=== PATIENT | female | born 1975 | race Caucasian/White ===

== ENCOUNTER 2017-06-23 23:01 | Inpatient (IN) | payer OTHER ==
[~2017-06-23] VITALS: Ht 165.1 cm; Wt 59.0 kg
[~2017-06-23 23:01] MED LIST: FERRALET 901 TAB PO; IBUPROFEN800 MG PO; LEVOTHYROXINE PO; LEVOTHYROXINE0.1 MG PO; MASON NATURAL325 MG PO; MS CONTIN15 MG PO; MULTIVITAMIN1 TAB PO; PERCOCET 325 MG1 TA2 PO; PERCOCET 5-3251 EACH PO; SYNTHROID0.125 MG PO; TRAMADOL HCL50 M1 PO
--- NOTE | 2017-06-23 23:18 | ED DYSPNEA/ASTHMA COMPLAINT ---
History of Present Illness General Chief Complaint: Dyspnea (COPD, CHF, Other) Stated Complaint: SOB Source: patient, family Exam Limitations: no limitations Vital Signs & Intake/Output Vital Signs & Intake/Output Vital Signs Date Time Temp Pulse Resp B/P B/P Pulse O2 O2 Flow FiO2 Mean Ox Delivery Rate 06/24 0251 98.1 77 18 115/62 94 Nasal 2.0L Cannula 06/24 0150 91 06/24 0100 100.3 91 22 99/54 97 Nasal 2.0L Cannula 06/23 2319 91 Room Air 06/23 2307 98.8 103 30 123/66 91 Room Air ED Intake and Output 06/24 0000 06/23 1200 Intake Total Output Total Balance Patient 130 lb Weight Allergies Coded Allergies: No Known Allergies (11/03/15) Reconcile Medications Levothyroxine Sodium 100 MCG TABLET 0.1 MG PO DAILY AC THYROID (Reported) Oxycodone HCl/Acetaminophen (Percocet 5-325 MG Tablet) 1 EACH TABLET 1 TAB PO DAILY PRN PAIN Triage Note: 42F C/O SOB, SHALLOW ANXIOUS BREATHING. LUNG SOUNDS DIMINISHED TO LLL, O2 SAT 91% AND USED RESCUE INH AND BREATHING TX WIRE SPINNER. C/O MIDSTERNAL/LEFT SIDED STABBING CP. WENT TO WALK IN THAT CONFIRMED PNEUMONIA, REPORTS SUBJECTIVE FEVERS AT HOME, AFEBRILE IN TRIAGE. ANXIOUS. ON PREDNISONE. Triage Nurses Notes Reviewed? yes Onset: Gradual Duration: day(s):, waxing and waning Timing: recent history Severity: moderate Activities at Onset: none Prior Episodes/Possible Cause: no prior episodes Modifying Factors: Improves With: rest. Associated Symptoms: cough, wheezing : No Patient currently breastfeeds: No HPI: 42 yo woman h/o smoking, seen at urgent care today and diagnosed with pneuomnia, given steroids and biaxin. She presents with dyspnea, chest wall pain, back pain that got worse throughout the rest of the day. She notes a productive cough, dyspnea, increased anxiety. She is otherwise well. Past History Travel History Traveled to [place] past 21 day No Medical History Any Pertinent Medical History? see below for history Neurological: NONE EENT: NONE Cardiovascular: NONE Respiratory: NONE Gastrointestinal: NONE Hepatic: NONE Renal: NONE Musculoskeletal: NONE Psychiatric: NONE Endocrine: THYROIDECTOMY Blood Disorders: anemia Cancer(s): NONE FABRICATION WELDER/Reproductive: fibroid Surgical History Surgical History: N Psychosocial History Who do you live with Paid Attentent What is your primary language Slovak Tobacco Use: Quit >30 days ago ETOH Use: denies use Illicit Drug Use: denies illicit drug use Family History Hx Contributory? No Review of Systems Review of Systems Constitutional: Reports: no symptoms. EENTM: Reports: no symptoms. Respiratory: Reports: no symptoms. Cardiovascular: Reports: no symptoms. GI: Reports: no symptoms. Genitourinary: Reports: no symptoms. Musculoskeletal: Reports: no symptoms. Skin: Reports: no symptoms. Neurological/Psychological: Reports: no symptoms. Hematologic/Endocrine: Reports: no symptoms. Immunologic/Allergic: Reports: no symptoms. All Other Systems: Reviewed and Negative Physical Exam Physical Exam General Appearance: well developed/nourished, mild distress Head: atraumatic, normal appearance Eyes: Bilateral: normal appearance. Ears, Nose, Throat: normal pharynx, normal ENT inspection Neck: normal inspection, supple, full range of motion Respiratory: bilateral wheeze, diminished breath sounds, parasternal chest wall tenderness. Cardiovascular: regular rate/rhythm Gastrointestinal: normal bowel sounds, soft, non-tender, no organomegaly Extremities: normal inspection, normal capillary refill, normal range of motion, no edema Neurologic/Psych: no motor/sensory deficits, awake, alert, oriented x 3, anxiety Skin: intact, normal color, warm/dry Core Measures ACS in differential dx? No CVA/TIA Diagnosis No Sepsis Present: No Sepsis Focused Exam Completed? No Progress Differential Diagnosis: asthma, bronchitis, pneumonia Plan of Care: Orders Procedure Date/time Status Nothing by Mouth 06/24 B Active Saline Lock 06/24 312 Active Misc Message 06/24 312 Active ED Holding Orders 06/24 312 Active Admit to inpatient 06/24 312 Active Vital Signs 06/24 312 Active Code Status 06/24 312 Active TROPONIN LEVEL 06/24 0215 Complete EKG 06/24 0215 Active RAPID VIRAL INFLUENZA A 06/24 0105 Complete Add-on Test (ER Only) 06/237 Active THYROID STIMULATING HORMONE 06/23 231 Complete TROPONIN LEVEL 06/23 2314 Complete HUMAN BETA HCG SCREEN 06/23 2314 Complete D-DIMER 06/23 2314 Complete COMPREHENSIVE METABOLIC PANEL 06/23 2314 Complete CBC WITHOUT DIFFERENTIAL 06/23 2313 Complete EKG 06/23 2309 Active Laboratory Tests 06/24/17 0209: Troponin I < 0.01 06/23/17 2315: Anion Gap 19 H, Estimated GFR > 60, BUN/Creatinine Ratio 16.0, Glucose 121 H, Calcium 9.3, Total Bilirubin 1.0, AST 18, ALT 19, Alkaline Phosphatase 65, Troponin I < 0.01, Total Protein 7.2, Albumin 4.7, Globulin 2.5, Albumin/ Globulin Ratio 1.9, TSH 0.297, Total Beta HCG NEGATIVE, D-Dimer High Sensitivty 276 H, CBC w Diff MAN DIFF ORDERED, RBC 3.80 L, MCV 98.8, MCH 33.0 H, MCHC 33.3, RDW 13.4, MPV 9.4, Gran % 95.8 H, Lymphocytes % 2.5 L, Monocytes % 1.2 L, Eosinophils % 0, Basophils % 0.5, Absolute Granulocytes 16.2 H, Segmented Neutrophils 95 H, Band Neutrophils 1, Absolute Lymphocytes 0.4 L, Lymphocytes 2 L, Monocytes 2, Absolute Monocytes 0.2, Absolute Eosinophils 0, Absolute Basophils 0.1, Platelet Estimate VERIFIED BY SMEAR, Normocytic RBCs VERIFIED, Normochromic RBCs VERIFIED, Fld Total RBCs Counted 100 Microbiology 06/24 107 NASOPHARYN: Influenza Virus A & B Rapid Smear - COMP Diagnostic Imaging: Viewed by Me: Radiology Read. Discussed w/RAD: Radiology Read. Radiology Impression: PATIENT: ELIZABETH MONROE PRESENT AGE: 42 PATIENT ACCOUNT NO: [id number] : 74 LOCATION: [facility] ORDERING PHYSICIAN: Eduardo Batista MD SERVICE DATE: 06/24/17 EXAM TYPE: CAT - CTA CHEST-PULMONARY EMBOLISM EXAMINATION: CT ANGIOGRAM OF THE CHEST WITH AND WITHOUT CONTRAST (CT PULMONARY ANGIOGRAM FOR PE) CLINICAL INFORMATION: dyspnea, +dimer COMPARISON: Chest x-ray June 23, 2017 TECHNIQUE: Prior to contrast administration, noncontrast localization images were obtained. Subsequently, multidetector volumetric imaging was performed from the thoracic inlet to below the diaphragms following the administration of 95 mL Optiray 350 intravenous contrast. No contrast reaction reported. Sagittal, coronal, and MIP oblique sagittal reformatted images were obtained on the CT workstation, uploaded to PACS, and reviewed. Total exam dose-length product 183.37 mGy-cm. FINDINGS: QUALITY OF STUDY/CONTRAST BOLUS: Satisfactory PULMONARY ARTERIES: No central or segmental pulmonary emboli. THORACIC AORTA: No aneurysm or dissection. LUNG: Scattered small focal groundglass opacities, infiltrate, in the anterior medial left upper lobe and right upper lobe. No bronchiectasis or reticular opacities. Small focus of consolidation atelectasis at the medial right middle lobe. Central bronchial airways are open. PLEURA: No pleural effusion or pneumothorax. MEDIASTINUM: Normal heart size. No pericardial effusion. No hilar or mediastinal lymphadenopathy. No evidence of septal bowing or right heart strain. CHEST WALL/AXILLA: No axillary or internal mammary lymphadenopathy. OSSEOUS STRUCTURES: No acute or suspicious osseous abnormality. UPPER ABDOMEN: 2 cm hypodensity likely hepatic cyst in left lobe of liver. Adrenal glands normal. No reflux of contrast into the hepatic veins to suggest elevated right heart pressures. IMPRESSION: 1. No evidence of pulmonary embolism. 2. Small scattered focus of groundglass infiltrates in the medial central anterior right upper lobe and left upper lobe. Small focus of consolidation/atelectasis at the medial right middle lobe. Would favor an infectious or inflammatory etiology. VTE: negative DICTATED BY: Miah Whalen MD DATE/TIME DICTATED:06/24/17208 LPN INSTRUCTOR:OVI DATE/TIME TRANSCRIBED:06/24/17208 CONFIDENTIAL, DO NOT COPY WITHOUT APPROPRIATE AUTHORIZATION. <Electronically signed in Other Vendor System> SIGNED BY: Miah Whalen MD 06/24/17217 CXR Impression: no acute abnormality, no infiltrates, normal size heart, normal mediastinum, PATIENT: ELIZABETH MONROE PRESENT AGE: 42 PATIENT ACCOUNT NO: [id number] : 73 LOCATION: [facility] ORDERING PHYSICIAN: Inocencio Zapata DO (TBS) SERVICE DATE: 06/23/17 EXAM TYPE: RAD - XRY- CHEST XRAY, TWO VIEWS EXAMINATION: XR CHEST CLINICAL INFORMATION: Cough and shortness of breath COMPARISON: None TECHNIQUE: 2 views of the chest were obtained. FINDINGS: No significant abnormality is noted involving the heart, lungs, mediastinum, bony thorax or soft tissues. IMPRESSION: Unremarkable examination. DICTATED BY: Miah Whalen MD DATE/TIME DICTATED:06/23/172334 LPN INSTRUCTOR:RENAE DATE/TIME TRANSCRIBED:02/04/18 / 2335 CONFIDENTIAL, DO NOT COPY WITHOUT APPROPRIATE AUTHORIZATION. <Electronically signed in Other Vendor System> SIGNED BY: Miah Whalen MD 06/23/17 2365 Initial ED EKG: non specific st changes... nsr. Repeat EKG: unchanged Departure Departure Disposition: STILL A PATIENT Condition: Stable Clinical Impression Primary Impression: Bronchitis Secondary Impressions: Chest wall pain, Hypoxia, Sepsis Referrals: Mikaela Garza APRN (PCP/Family) Departure Forms: Customer Survey General Discharge Information Comments 06/24/17, 1:00am... pt feeling more comfortable. 02sat 92% on room air. Lungs with diminished breath sounds. +dimer... discussed with patient.... will check ct angio 06/24/17, 3:07am... pt desatting to 89-91% on room air... Admission Note Spoke With: Vishnu Nevarez MD Documentation of Exam: Documentation of any treatments & extenuating circumstances including Concerns Regarding Discharge (functional status, medication knowledge or non-compliance, living conditions, etc.) that warrant an admission rather than observation: pt with hypoxia, wheezing, requiring supplemental 02. Pt has also failed outpatient abx. pt to be admitted for 02 support, iv steroids, iv abx. Critical Care Note Critical Care Note Critical Care Time: 30-74 min
[2017-06-23 23:27] LABS: ABSOLUTE BASOPHIL COUNT 0.1 /CUMM (0.0-0.2); ABSOLUTE EOSINOPHIL COUNT 0 /CUMM (0.0-0.7); ABSOLUTE GRANULOCYTE CT 16.2 /CUMM (1.4-6.5); ABSOLUTE LYMPH COUNT 0.4 /CUMM (1.2-3.4); ABSOLUTE MONOCYTE COUNT 0.2 /CUMM (0.10-0.60); BASOPHIL % 0.5 % (0.0-2.0); EOSINOPHIL % 0 % (0-5); HEMATOCRIT 37.5 % (37-47); MEAN CORPUSCULAR HGB CONC 33.3 G/DL (33.0-37.0); MEAN CORPUSCULAR VOLUME 98.8 FL (81.0-99.0); MEAN PLATELET VOLUME 9.4 FL (7.4-10.4); PLATELET COUNT 169 /CUMM (130-400); RBC DISTRIBUTION WIDTH 13.4 % (11.5-14.5); WHITE BLOOD CELL COUNT 16.9 /CUMM (4.8-10.8)
[2017-06-23 23:30] LABS: GRANULOCYTE % 95.8 % (42.2-75.2)
--- NOTE | 2017-06-23 23:38 | RADIOLOGY REPORT ---
EXAMINATION: XR CHEST CLINICAL INFORMATION: Cough and shortness of breath COMPARISON: None TECHNIQUE: 2 views of the chest were obtained. FINDINGS: No significant abnormality is noted involving the heart, lungs, mediastinum, bony thorax or soft tissues. IMPRESSION: Unremarkable examination.
--- NOTE | 2017-06-24 02:18 | CT SCAN REPORT ---
EXAMINATION: CT ANGIOGRAM OF THE CHEST WITH AND WITHOUT CONTRAST (CT PULMONARY ANGIOGRAM FOR PE) CLINICAL INFORMATION: dyspnea, +dimer COMPARISON: Chest x-ray June 23, 2017 TECHNIQUE: Prior to contrast administration, noncontrast localization images were obtained. Subsequently, multidetector volumetric imaging was performed from the thoracic inlet to below the diaphragms following the administration of 95 mL Optiray 350 intravenous contrast. No contrast reaction reported. Sagittal, coronal, and MIP oblique sagittal reformatted images were obtained on the CT workstation, uploaded to PACS, and reviewed. Total exam dose-length product 183.37 mGy-cm. FINDINGS: QUALITY OF STUDY/CONTRAST BOLUS: Satisfactory PULMONARY ARTERIES: No central or segmental pulmonary emboli. THORACIC AORTA: No aneurysm or dissection. LUNG: Scattered small focal groundglass opacities, infiltrate, in the anterior medial left upper lobe and right upper lobe. No bronchiectasis or reticular opacities. Small focus of consolidation atelectasis at the medial right middle lobe. Central bronchial airways are open. PLEURA: No pleural effusion or pneumothorax. MEDIASTINUM: Normal heart size. No pericardial effusion. No hilar or mediastinal lymphadenopathy. No evidence of septal bowing or right heart strain. CHEST WALL/AXILLA: No axillary or internal mammary lymphadenopathy. OSSEOUS STRUCTURES: No acute or suspicious osseous abnormality. UPPER ABDOMEN: 2 cm hypodensity likely hepatic cyst in left lobe of liver. Adrenal glands normal. No reflux of contrast into the hepatic veins to suggest elevated right heart pressures. IMPRESSION: 1. No evidence of pulmonary embolism. 2. Small scattered focus of groundglass infiltrates in the medial central anterior right upper lobe and left upper lobe. Small focus of consolidation/atelectasis at the medial right middle lobe. Would favor an infectious or inflammatory etiology. VTE: negative
--- NOTE | 2017-06-24 03:20 | History & Physical ---
Issa BUSTILLOS,[facility] 06/24/17 0319: General Information and HPI MD Statement: I have seen and personally examined ELIZABETH NIXON and documented this H&P. The patient is a 42 year old F who presented with a patient stated chief complaint of [sob]. History of Present Illness: 42 yo F hx of hypothyroid s/p thyroidectomy, hypothyrodism presenting for pna found in urgent care. The pt states sx started 2 days ago and is progressively getting worse. Patient states that she went to her friend's house to have a breathing treatment which did not help so she decided to come to the ED. She endorses cough with green productive sputum which is worst at night. She also complains of fevers, chills, coughing and sneezing. States she has diiffuse burning chest pain which radiates to arm/neck intermittently. She also reports burning abd pain which radiates to her back. Currently pain is 6/10. Denies any sick contacts. No flu or pna vaccine. Of note pt had L breast nodule biopsied but and states results were negative. 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 Cardiovascular: Reports: see HPI, chest pain. Respiratory: Reports: cough, short of breath, sputum production. GI: Reports: see HPI, abdominal pain. Skin: Reports: see HPI (2+ radial). Exam & Diagnostic Data Last 24 Hrs of Vital Signs/I&O Vital Signs Date Time Temp Pulse Resp B/P B/P Pulse O2 O2 Flow FiO2 Mean Ox Delivery Rate 06/24 0251 98.1 77 18 115/62 94 Nasal 2.0L Cannula 02/05 0150 91 06/24 0100 100.3 91 22 99/54 97 Nasal 2.0L Cannula 06/23 2319 91 Room Air 06/23 2307 98.8 103 30 123/66 91 Room Air Intake & Output 06/24 0800 06/24 0000 06/23 1600 Intake Total Output Total Balance Patient 130 lb Weight Physical Exam General Appearance Alert, Oriented X3, Cooperative, Pt appears agitated at times Skin blanching erythema of chest Cardiovascular reproducible cp Lungs diffuse decreased air movement Abdomen reproducible abd pain Extremities 2+ radial pulses, no LE edema Last 24 Hrs of Labs/Chris: Laboratory Tests 06/24/17 0323: Lactic Acid Cancelled 06/24/17 0209: Troponin I < 0.01 06/23/17 2315: Anion Gap 19 H, Estimated GFR > 60, BUN/Creatinine Ratio 16.0, Glucose 121 H, Lactic Acid 4.6 H, Calcium 9.3, Total Bilirubin 1.0, AST 18, ALT 19, Alkaline Phosphatase 65, Troponin I < 0.01, Total Protein 7.2, Albumin 4.7, Globulin 2.5, Albumin/Globulin Ratio 1.9, TSH 0.297, Total Beta HCG NEGATIVE, D-Dimer High Sensitivty 276 H, CBC w Diff MAN DIFF ORDERED, RBC 3.80 L, MCV 98.8, MCH 33.0 H, MCHC 33.3, RDW 13.4, MPV 9.4, Gran % 95.8 H, Lymphocytes % 2.5 L, Monocytes % 1.2 L, Eosinophils % 0, Basophils % 0.5, Absolute Granulocytes 16.2 H, Segmented Neutrophils 95 H, Band Neutrophils 1, Absolute Lymphocytes 0.4 L, Lymphocytes 2 L, Monocytes 2, Absolute Monocytes 0.2, Absolute Eosinophils 0, Absolute Basophils 0.1, Platelet Estimate VERIFIED BY SMEAR, Normocytic RBCs VERIFIED, Normochromic RBCs VERIFIED, Fld Total RBCs Counted 100 Microbiology 06/24 409 BLOOD: Blood Culture - RECD 06/24 354 BLOOD: Blood Culture - RECD 06/24 319 BLOOD: Blood Culture - ORD 06/24 107 NASOPHARYN: Influenza Virus A & B Rapid Smear - COMP Assessment/Plan Assessment: A: 42 yo F hx of hypothyroid s/p thyroidectomy, hypothyrodism presenting for pna found in urgent care #severe sepsis 2/2 to multifocal pna T max 100.3 lactic acid 4.6 WBC 16.9 D-dimer 276 Chest CTA: 1. There are calcified and noncalcified pleural plaques however No CT evidence of aneurysm or dissection of the thoracic aorta. 2. Coronary calcifications. 3. Gallstones. Cholelithiasis. 4. There are 2 hypodense areas in the RIGHT kidney 1.2 cm, could be complex cyst versus lesion -cont solumdrol 40 q12 -trc/nebs/mucinex -urinary legionella, strep pneumo, sputum and blood cx -cont ceftriaxone/azithro -consult pulm in AM -trend lactic acid #ekg changes in the setting of diffuse abd/chest pain T wave depressions in lateral leads trop <.01 x2 -f/u trop ekg 2 more times -cardiology consult -f/u lipase levels for abd pain -start PPI for ?gastritis as pt has diffsue abd pain #chest erythema Blanching erythema suggests excess estrogen LFTs are normal -cont to monitor #Utox -f/u utox #FULL CODE #DVT prophylaxis -ENOXAPARIN As Ranked By This Provider Problem List: 1. Pneumonia Core Measures/Misc (02/03) Acute Coronary Syndrome ACS Diagnosis: No Congestive Heart Failure Congestive Heart Failure Diagnosis No Cerebrovascular Accident CVA/TIA Diagnosis: No VTE (View Protocol) VTE Risk Factors Acute Medical Illness No Mechanical VTE Prophylaxis d/t Other No VTE Pharm Prophylaxis d/t NA PharmProphylax ordered Sepsis (View protocol) Sepsis Present: Yes Ana BUSTILLOS,[facility] 06/24/17 0453: Resident Review Statement Resident Statement: examined this patient, discussed with editing internship, agreed with editing internship, discussed with family Other Findings: Ms. 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 Patient stated that 3 days ago she started symptoms of upper respiratory infection, sneezing, subjective fever, chills. On Saturday started to have difficulty breathing, slept on sitting position for symptomatic relieve. She woke up this morning and went to friend's house for nebulizer treatment, no change in the symptoms, went to urgent clinic and was prescribed steroids and clarthimycin however symptoms persisted and came to ED for evaluation. Patient reported that shortness of breath has been getting worse, reported chest and abdominal pain, constant sharp in nature, denied palpitation. Patient never had similar symptoms before, no history of lung or heart disease. No history of sick contact. Didn't have flu or pneumonia vaccine this season. Patient denied nausea, vomiting, diarrhea or constipation, burning with urination, lower extremity swelling. Has family history of cancer including breast cancer in mother, heart disease. On admission Vitals 98.8 temperature, MAXIMUM TEMPERATURE 100.3, pulse 103, blood pressure 123/66, saturating 91% on room air and 97% on 2 L Physical exam C1-C2 regular no murmur, respiratroy bilateral diffuse expiratory wheeze, chest reproducible pain, abdomen soft, positive bowel sounds, mild tenderness on palpation. No lower extremity edema. Labs significant for leukocytosis 16.9 with left chest, 1 band, H&H 12.5/37.5, platelet 169, sodium 141, potassium 4.2, chloride 103, bicarbonate 19, BUN/ creatinine 8/0.5, anion gap 19, lactic acid 4.6, d-dimer 276, troponin less then 0.012 Imaging Chest x-ray negative for acute changes CTA IMPRESSION: 1. No evidence of pulmonary embolism. 2. Small scattered focus of groundglass infiltrates in the medial central anterior right upper lobe and left upper lobe. Small focus of consolidation/atelectasis at the medial right middle lobe. Would favor an infectious or inflammatory etiology. VTE: negative Problem list #Sepsis #Acute hypoxic respiratory failure #Pneumonia community acquired versus atypical #Lactic acidosis #Atypical chest pain #EKG changes T-wave inversion, peaked P wave in lead II #Hypothyroidism Plan -Admit to telemetry floor given EKG changes -Vitals every shift -TRC and nebs -Oxygen supplementation -Ceftriaxone and azithromycin -Solu-Medrol 40 every 12 hours -Mucinex by mouth -Obtained Legionella and streptococcus urine antigen -Blood culture and sputum culture -Pulmonary consultation in a.m. -Cardiology consultation in a.m. -Additional drops and EKG 2 -Repeat lactic acid 2 -IV fluid normal saline boluses -Obtain urine tox -Given a typical abdominal pain with radiation to pack, will obtain lipase -Start PPI -Obtained coagulation profile -Continue home dose Synthroid Diet regular Code full DVT prophylaxis Lovenox Geri,[facility] 06/24/17 0533: Attending MD Review Statement Attending Statement Attending MD Statement: examined this patient, discuss w/resident/PA/WIRE PULLER, agreed w/resident/PA/WIRE PULLER, reviewed EMR data (avail), reviewed images, amended to note Attending Assessment/Plan: CC: Shortness of breath PMH: Lyndon's thyroiditis S/P thyroidectomy currently on levothyroxine Patient came to ER for worsening shortness of breath, wheezing. She started to notice URI symptoms last 4-5 days, followed by cough with initially clear sputum production which changed to yellowish green. She felt fever and chills at home. She also mentions chest pain, substernal, stabbing, nonradiating, not worsened by breathing. She also has vague abdominal pain. Initially for her URI symptoms and persistent cough she went to urgent care clinic where she was prescribed steroids and antibiotics, she tried a dose at home which did not help. Her breathing was progressively worsening so she came to ER. Patient is a poor historian, does not provide a lot of details about past medical history. Complete ROS unremarkable. Patient had increased nodule biopsy which was benign. She quit smoking 9 months back, absolutely denies alcohol and drugs. Vitals: T max 100.3, pulse 103, RR 30, blood pressure 123/66, saturating 91% on room air improved to 94% on 2 L On exam: A O 3, cooperative, moderate respiratory distress, accessory muscles of respiration in use, thin built, Neck supple, JVD normal, no lymphadenopathy, mucosa moist, no focal neurological deficit, no dependent edema, CVS: S1-S2, RRR. RS: Bilateral wheezing and rhonchi. Abdomen: Soft, NT, ND, bowel sounds present. obvious skin rashes or inflammation but she has Spider angioma Labs: WBC 16.9, hemoglobin 12.5, hematocrit 37.5, platelet 169, neutrophils 95%, band 1, sodium 141, potassium 4.2, chloride 103, bicarbonate 19, BUN 8, creatinine 0.5, anion gap 19, glucose 121, calcium 9.3, lactate 4.6, LFT unremarkable, troponin less than 0.01, TSH 0.29, influenza negative ECG: ? T-wave inversion V2 V3 and V4 CXR:Unremarkable examination. CTA chest: 1. No evidence of pulmonary embolism. 2. Small scattered focus of groundglass infiltrates in the medial central anterior right upper lobe and left upper lobe. Small focus of consolidation/atelectasis at the medial right middle lobe. Would favor an infectious or inflammatory etiology. Assessment and plan 42-year-old female with past medical history significant for iatrogenic hypothyroidism after thyroidectomy for Lyndon's thyroiditis, ex smoker presented in ER for acute worsening of shortness of breath. Her symptoms started with URI, followed by cough with clear expectoration with change to yellow- green. Patient had fever at home and complains of chest pain. She had fever of 100.3 in ER, tachycardic, tachypneic, thin built and was found to have respiratory distress with wheezing and rhonchi on auscultation. Even though chest x-ray did not machine pecan picker pneumonia, CTA chest shows evidence of multifocal pneumonia. She had leukocytosis with 1 band, lactic acidosis. She also has T- wave inversions in lateral leads, comparison not available. Given her extensive smoking history and current chest pain, it would be appropriate to monitor her on telemetry floor. Patient is poor historian and does not provide many details in her history, denies alcohol intake but has spider angioma on her chest. + Multifocal pneumonia + Severe sepsis secondary to pneumonia + Chest pain with T-wave inversion (no previous ECG to compare) + History of hypothyroidism - Admit to telemetry - Continuous telemetry monitoring - Try to wean off oxygen - IV methylprednisolone 40 mg every 12 hours - IV azithromycin and ceftriaxone - TRC nebulization with albuterol and ipratropium scheduled and when necessary - Mucinex scheduled twice a day - Serial troponin and EKGs - Cardiology consult - Legionella and strep antigen - Check U tox - Trend lactate - Check lipase - Continue by mouth Protonix - Continue rest of the home medications - Adequate pain control - DVT prophylaxis
--- NOTE | 2017-06-24 05:35 | Admission Certification ---
Admission Certification Certification Statement - As attending physician, I certify that at the time of - admission, based on clinical presentation, severity of - symptoms, need for further diagnostic testing and - therapeutic interventions, and risk of adverse outcomes - without in-hospital treatment, in my clinical assessment, - this patient requires an acute hospital stay for a minimum - of two nights or longer. I have also considered psychsocial - factors such as support system, advanced age, financial - issues, cognitive issues, and failed out-patient treatments, - past re-admission history, safety of patient, and lack of - compliance as applicable. Specific rationale supporting this admission is: Multifocal pneumonia
[2017-06-24 06:57] LABS: PT 12.1 SEC (9.4-12.5); PTT 31 SEC (25-37)
--- NOTE | 2017-06-24 10:05 | Event Note ---
Event Note Event Note: 42 yo F with pmh of Lyndon's thyroiditis status post thyroidectomy on levothyroxin, presented to the emergency after 3 days of cough with greenish sputum, wheezing and shortness of breath. She also complained of substernal chest pain, which seemed to be pleuritic, and took the first dose of oral antibiotic prescribed by urgent care clinic, but was getting worsening of symptoms, and presented to the emergency department. On presentation, her temperature was 100.3, pulse 103, respiration 30, BP 123/66 , SPO2 91% on room air, improved to 94% on 2 L oxygen via nasal cannula. See presented with moderate respiratory distress with bilateral wheezing and rhonchi on chest auscultation, and was admitted to the telemetry floor for continuous pulse ox monitoring, and management of following issues: #Acute respiratory failure, secondary to come the acquired pneumonia: We are treating her with IV ceftriaxone and IV azithromycin, IV steroids 40 mg every 12 hours, TRC/nebs, Mucinex. #Active EKG changes, T-wave inversion, in the setting of pneumonia. Patient's EKG shows T-wave inversion, and later normalization, and with a history of recurrent chest pains, cardiac consultation has been requested to inquire if she requires further investigation as inpatient as compared to outpatient setting. Will wait for recommendations. #Continue rest of her home medications. #Diet: Regular diet #DVT ppx: SC Lovenox #Code status: Full code
--- NOTE | 2017-06-24 14:41 | PN- Att Addend ---
Attending Addendum Attending Brief Note Patient seen and examined. Lying in bed not in acute distress. Family present at the bedside. Reports shortness of breath with exertion. Reports productive cough. Denies chest pain at present. Patient however admits to chest pain with rest or exertion at baseline even preceding her current symptoms. EKG on arrival emergency room showed T-wave inversions that have resolved on EKG this morning. She is hemodynamically stable. Troponins are negative 3. Vital Signs Date Time Temp Pulse Resp B/P B/P Pulse O2 O2 Flow FiO2 Mean Ox Delivery Rate 06/24 1417 98.2 56 18 111/66 96 Nasal 2.5L Cannula 06/24 1129 98.3 60 18 116/59 95 Nasal 2.0L Cannula 06/24 1034 97.9 66 18 120/77 97 Nasal 2.0L Cannula 06/24 0750 98.9 68 20 114/57 97 Nasal 2.0L Cannula 06/24 0725 97.4 67 20 111/60 96 Nasal 2.0L Cannula 06/24 0444 97.2 67 20 115/70 96 Nasal 2.0L Cannula 06/24 0251 98.1 77 22 115/62 94 Nasal 2.0L Cannula 06/24 0150 91 06/24 0100 100.3 91 22 99/54 97 Nasal 2.0L Cannula 06/23 2319 91 Room Air 06/23 2307 98.8 103 30 123/66 91 Room Air General appearance: Not in acute distress Heart: S1-S2 regular with no audible murmur Lungs: Fair entry bilaterally with coarse breath sounds. Abdomen: Soft, nontender with normal bowel sounds Extremities: No pedal edema Skin: Intact without rashes Laboratory Tests 06/24/17 0836: Troponin I < 0.01 06/24/17 0323: Lactic Acid Cancelled 06/24/17 0209: Troponin I < 0.01 06/24/17 0105: Virus Culture Pending 06/23/17 2315: Anion Gap 19 H, Estimated GFR > 60, BUN/Creatinine Ratio 16.0, Glucose 121 H, Lactic Acid 4.6 H, Calcium 9.3, Total Bilirubin 1.0, AST 18, ALT 19, Alkaline Phosphatase 65, Troponin I < 0.01, Total Protein 7.2, Albumin 4.7, Globulin 2.5, Albumin/Globulin Ratio 1.9, Lipase 21 L, TSH 0.297, Total Beta HCG NEGATIVE, PT 12.1, INR 1.15, APTT 31, D-Dimer High Sensitivty 276 H, CBC w Diff MAN DIFF ORDERED, RBC 3.80 L, MCV 98.8, MCH 33.0 H, MCHC 33.3, RDW 13.4, MPV 9.4, Gran % 95.8 H, Lymphocytes % 2.5 L, Monocytes % 1.2 L, Eosinophils % 0, Basophils % 0.5, Absolute Granulocytes 16.2 H, Segmented Neutrophils 95 H, Band Neutrophils 1, Absolute Lymphocytes 0.4 L, Lymphocytes 2 L, Monocytes 2, Absolute Monocytes 0.2, Absolute Eosinophils 0, Absolute Basophils 0.1, Platelet Estimate VERIFIED BY SMEAR, Normocytic RBCs VERIFIED, Normochromic RBCs VERIFIED , Fld Total RBCs Counted 100, Serum Alcohol < 10.0 Microbiology 06/24 447 URINE ROUT: Legionella Antigen - COLB 06/24 447 URINE ROUT: Streptococcus pneumoniae Antigen (M - COLB 06/24 447 LOWER RESP: Respiratory Culture - COLB 06/24 447 LOWER RESP: Gram Stain - COLB 06/24 0410 BLOOD: Blood Culture - RECD 06/24 0355 BLOOD: Blood Culture - RECD 06/24 0320 BLOOD: Blood Culture - CAN Cancelled: DUPLICATE ORDER 1ST/VENOUS, SEE [id number] & [id number] 06/24 0108 NASOPHARYN: Influenza Virus A & B Rapid Smear - COMP Problems: 1. Community acquired pneumonia 2. History of chest pain with abnormal EKG on presentation. Plan: -Continue IV antibiotic therapy for pneumonia. Obtain sputum cultures if possible. -Would recommend follow-up imaging in the future to document resolution of her infection. -If she shows no clinical improvement over the next 48 hours we will consider obtaining pulmonary consultation. -Her abnormal EKG and complaint of chest pain there is concern for ischemic disease. She is currently asymptomatic and cardiac enzymes are negative. Recommend echocardiogram and cardiology consultation.
--- NOTE | 2017-06-24 15:51 | Cons- Cardiology ---
General Information and HPI Consulting Request Date of Consult: 06/24/17 Requested By: Jair Jordan MD Reason for Consult: Abnormal EKG in the setting of an acute respiratory illness Source of Information: patient Exam Limitations: no limitations History of Present Illness: The patient is a 42-year-old female who has been generally healthy. She has no history of heart disease or hypertension. She is not on any cardiac medications. She is a light smoker. She has been complaining of several days of increasing cough and shortness of breath and finally came to the emergency room last evening. Her initial electrocardiogram showed diffuse nonspecific T- wave changes including some mild T-wave inversions anteriorly. Subsequent EKG showed somewhat improved T-wave changes and this morning's electrocardiogram was normal. She has 3 sets of negative troponins. She is not having any cardiac complaints during this period. It was recommended to bring her in the hospital for her respiratory symptoms and probable pneumonia and to monitor her on telemetry. Allergies/Medications Allergies: Coded Allergies: No Known Allergies (11/03/15) Home Med List: Levothyroxine Sodium 100 MCG TABLET 0.1 MG PO DAILY AC THYROID (Reported) Oxycodone HCl/Acetaminophen (Percocet 5-325 MG Tablet) 1 EACH TABLET 1 TAB PO DAILY PRN PAIN Current Medications: Current Medications Sig/Tony Start time Last Medication Dose Route Stop Time Status Admin Acetaminophen 650 MG Q6P PRN 06/24 0430 AC PO Albuterol Sulfate 3 ML Q4H PRN 06/24 0500 AC INH Albuterol Sulfate 3 ML ONCE ONE 06/24 0115 DC 06/24 INH 06/24 0116 0150 Albuterol Sulfate 3 ML ONCE ONE 06/23 2315 DC 06/23 INH 06/23 2316 2321 Azithromycin 500 MG DAILY 06/24 1000 AC 06/24 Dextrose/Water 250 ML IV 1030 Azithromycin 500 MG ONCE ONE 06/24 0330 DC 06/24 Dextrose/Water 250 ML IV 06/24 0429 0441 Ceftriaxone Sodium 0 .STK-MED ONE 06/24 1018 DC .ROUTE Ceftriaxone Sodium 1,000 MG DAILY 06/24 1000 AC 06/24 IV 1020 Ceftriaxone Sodium 0 .STK-MED ONE 06/24 0431 DC .ROUTE Ceftriaxone Sodium 1,000 MG ONCE ONE 06/24 0330 DC 06/24 IV 06/24 033 0441 Enoxaparin Sodium 0 .STK-MED ONE 06/24 1018 DC SC Enoxaparin Sodium 40 MG DAILY 06/24 1000 AC 06/24 SC 1020 Guaifenesin 600 MG Q12 06/24 1000 AC 06/24 PO 1030 Ipratropium [place] 2.5 ML ONCE ONE 06/24 0115 DC 06/24 INH 06/24 0116 0150 Ipratropium [place] 2.5 ML ONCE ONE 06/23 2315 DC 06/23 INH 06/23 2316 2321 Levothyroxine Sodium 0.1 MG DAILY AC 06/24 0700 AC 06/24 PO 0749 Methylprednisolone 40 MG Q12 06/24 1000 AC 06/24 IV 1030 Methylprednisolone 0 .STK-MED ONE 06/24 0036 DC .ROUTE Methylprednisolone 60 MG ONCE ONE 06/23 2330 DC 06/24 IV 06/23 2331 0037 Omeprazole 0 .STK-MED ONE 06/24 0753 DC PO Omeprazole 20 MG DAILY AC 06/24 0700 AC 06/24 PO 0749 Sodium Chloride 1,000 ML Q10H 06/24 1330 AC 06/24 IV 06/25 0929 1519 Sodium Chloride 500 ML BOLUS ONE 06/24 1330 DC / IV 06/24 1429 1359 Sodium Chloride 1,000 ML BOLUS ONE 06/24 0430 DC / IV 06/24 0629 0700 Sodium Chloride 1,000 ML BOLUS ONE 06/24 0415 DC 06/24 IV / 0514 0418 Review of Systems Review of Systems: No other complaints in the review of systems Past History Travel History Traveled to [place] past 21 day No Medical History Neurological: migraine EENT: NONE Cardiovascular: NONE Respiratory: NONE Gastrointestinal: NONE Hepatic: NONE Renal: NONE Musculoskeletal: NONE Psychiatric: NONE Endocrine: THYROIDECTOMY Blood Disorders: anemia Cancer(s): NONE PHARMACY TECHNICIAN INSTRUCTOR/Reproductive: fibroid Surgical History Surgical History: none Psychosocial History ETOH Use: denies use Illicit Drug Use: denies illicit drug use Exam & Diagnostic Data Vital Signs and I&O Vital Signs Date Time Temp Pulse Resp B/P B/P Pulse O2 O2 Flow FiO2 Mean Ox Delivery Rate 06/24 1417 98.2 56 18 111/66 96 Nasal 2.5L Cannula 06/24 1129 98.3 60 18 116/59 95 Nasal 2.0L Cannula 06/24 1034 97.9 66 18 120/77 97 Nasal 2.0L Cannula 06/24 0750 98.9 68 20 114/57 97 Nasal 2.0L Cannula 06/24 0725 97.4 67 20 111/60 96 Nasal 2.0L Cannula 06/24 0444 97.2 67 20 115/70 96 Nasal 2.0L Cannula 06/24 0251 98.1 77 22 115/62 94 Nasal 2.0L Cannula 06/24 0150 91 06/24 0100 100.3 91 22 99/54 97 Nasal 2.0L Cannula 06/23 2319 91 Room Air 06/23 2307 98.8 103 30 123/66 91 Room Air Intake & Output 06/24 1600 06/24 0800 06/24 0000 06/23 1600 06/23 0800 06/23 0000 Intake Total 250 1250 Output Total Balance 250 1250 Intake, IV 250 1250 Patient 130 lb Weight Physical Exam: On physical she is a well-developed well-nourished middle-aged female in no acute distress. HEENT exam is normal Chest reveals a few rhonchi and mild expiratory wheezing Heart reveals regular rhythm and no murmurs Abdomen benign Extremities good pulses, no edema Labs/Chris Results: Laboratory Tests 06/24 06/24 06/24 06/24 06/24 1509 1509 0836 0323 0209 Chemistry Lactic Acid Pending Cancelled Troponin I (< 0.11 ng/ml) Pending < 0.01 < 0.01 06/24 06/23 0105 2315 Chemistry Sodium (137 - 145 mmol/L) 141 Potassium (3.5 - 5.1 mmol/L) 4.2 Chloride (98 - 107 mmol/L) 103 Carbon Dioxide (22 - 30 mmol/L) 19 L Anion Gap (5 - 16) 19 H BUN (7 - 17 mg/dL) 8 Creatinine (0.5 - 1.0 mg/dL) 0.5 Estimated GFR (>60 ml/min) > 60 BUN/Creatinine Ratio (7 - 25 %) 16.0 Glucose (65 - 99 mg/dL) 121 H Lactic Acid (0.7 - 2.1 mmol/L) 4.6 H Calcium (8.4 - 10.2 mg/dL) 9.3 Total Bilirubin (0.2 - 1.3 mg/dL) 1.0 AST (14 - 36 U/L) 18 ALT (9 - 52 U/L) 19 Alkaline Phosphatase (<127 U/L) 65 Troponin I (< 0.11 ng/ml) < 0.01 Total Protein (6.3 - 8.2 g/dL) 7.2 Albumin (3.5 - 5.0 g/dL) 4.7 Globulin (1.9 - 4.2 gm/dL) 2.5 Albumin/Globulin Ratio (1.1 - 2.2 %) 1.9 Lipase (23 - 300 U/L) 21 L TSH (0.270 - 4.200 uIU/mL) 0.297 Total Beta HCG (NEGATIVE) NEGATIVE Coagulation PT (9.4 - 12.5 SEC) 12.1 INR (0.90 - 1.19) 1.15 APTT (25 - 37 SEC) 31 D-Dimer High Sensitivty (0 - 243 ng/ml) 276 H Hematology CBC w Diff MAN DIFF ORDERED WBC (4.8 - 10.8 /CUMM) 16.9 H RBC (4.20 - 5.40 /CUMM) 3.80 L Hgb (12.0 - 16.0 G/DL) 12.5 Hct (37 - 47 %) 37.5 MCV (81.0 - 99.0 FL) 98.8 MCH (27.0 - 31.0 PG) 33.0 H MCHC (33.0 - 37.0 G/DL) 33.3 RDW (11.5 - 14.5 %) 13.4 Plt Count (130 - 400 /CUMM) 169 MPV (7.4 - 10.4 FL) 9.4 Gran % (42.2 - 75.2 %) 95.8 H Lymphocytes % (20.5 - 51.1 %) 2.5 L Monocytes % (1.7 - 9.3 %) 1.2 L Eosinophils % (0 - 5 %) 0 Basophils % (0.0 - 2.0 %) 0.5 Absolute Granulocytes (1.4 - 6.5 /CUMM) 16.2 H Segmented Neutrophils (42.2 - 75.2 %) 95 H Band Neutrophils (0.0 - 5.0 %) 1 Absolute Lymphocytes (1.2 - 3.4 /CUMM) 0.4 L Lymphocytes (20.5 - 51.1 %) 2 L Monocytes (1.7 - 9.3 %) 2 Absolute Monocytes (0.10 - 0.60 /CUMM) 0.2 Absolute Eosinophils (0.0 - 0.7 /CUMM) 0 Absolute Basophils (0.0 - 0.2 /CUMM) 0.1 Platelet Estimate (ADEQUATE) VERIFIED BY SMEAR Normocytic RBCs VERIFIED Normochromic RBCs VERIFIED Other Body Source Fld Total RBCs Counted (%) 100 Serology Virus Culture Pending Toxicology Serum Alcohol (<10 MG/DL) < 10.0 Diagnostic Data EKG Results EKG on June 23 at 23:23 hrs. shows sinus rhythm at a rate of [address]-T wave abnormalities. Repeat EKG hasn't 2:16 AM showed sinus rhythm at 71 with the nonspecific T-wave changes a little less prominent. Repeat EKG this morning at 8:18 AM is within normal limits CXR Results PATIENT: ELIZABETH MONROE PRESENT AGE: 42 PATIENT ACCOUNT NO: [id number] : 74 LOCATION: [facility] ORDERING PHYSICIAN: Inocencio Zapata DO (TBS) SERVICE DATE: 06/23/17 EXAM TYPE: RAD - XRY-CHEST XRAY, TWO VIEWS EXAMINATION: XR CHEST CLINICAL INFORMATION: Cough and shortness of breath COMPARISON: None TECHNIQUE: 2 views of the chest were obtained. FINDINGS: No significant abnormality is noted involving the heart, lungs, mediastinum, bony thorax or soft tissues. IMPRESSION: Unremarkable examination. DICTATED BY: Miah Whalen MD DATE/TIME DICTATED:06/23/172334 CLAIMS MANAGER:OVI DATE/TIME TRANSCRIBED:06/23/172334 CONFIDENTIAL, DO NOT COPY WITHOUT APPROPRIATE AUTHORIZATION. <Electronically signed in Other Vendor System> SIGNED BY: Miah Whalen MD 06/23/172337 Other Results IMPRESSION: 1. No evidence of pulmonary embolism. 2. Small scattered focus of groundglass infiltrates in the medial central anterior right upper lobe and left upper lobe. Small focus of consolidation/atelectasis at the medial right middle lobe. Would favor an infectious or inflammatory etiology. VTE: negative DICTATED BY: Miah Whalen MD DATE/TIME DICTATED:06/24/17208 CLAIMS MANAGER:OVI DATE/TIME TRANSCRIBED:06/24/17208 Assessment/Plan Assessment/Plan The patient is a 42-year-old female who presents with respiratory symptoms. She has probable pneumonia based on her CAT scan. She has 3 EKGs, two of which show nonspecific T-wave changes. She has negative enzymes. There is no evidence of any acute cardiac pathology. I think her T-wave abnormalities are based on her respiratory distress. Her EKG has normalized. I think it is reasonable to put her on telemetry for 24 hours and to repeat an EKG in the morning. If that is negative then she can come off the monitor Consult Acknowledgment - Thank you for your consult request.
[2017-06-24 16:50] VITALS: BP 102/60
[2017-06-24 20:11] LABS: ABSOLUTE BASOPHIL COUNT 0 /CUMM (0.0-0.2); ABSOLUTE EOSINOPHIL COUNT 0 /CUMM (0.0-0.7); ABSOLUTE LYMPH COUNT 0.6 /CUMM (1.2-3.4); ABSOLUTE MONOCYTE COUNT 0.5 /CUMM (0.10-0.60); BASOPHIL % 0.1 % (0.0-2.0); EOSINOPHIL % 0 % (0-5); MEAN CORPUSCULAR HGB 33.7 PG (27.0-31.0); MEAN CORPUSCULAR HGB CONC 34.2 G/DL (33.0-37.0); MEAN CORPUSCULAR VOLUME 98.6 FL (81.0-99.0); MEAN PLATELET VOLUME 10.5 FL (7.4-10.4); PLATELET COUNT 143 /CUMM (130-400); RBC DISTRIBUTION WIDTH 13.1 % (11.5-14.5); RED BLOOD CELL CT 3.16 /CUMM (4.20-5.40); WHITE BLOOD CELL COUNT 14.1 /CUMM (4.8-10.8)
[2017-06-24 20:28] LABS: GRANULOCYTE % 92.1 % (42.2-75.2); HEMATOCRIT 31.2 % (37-47)
[2017-06-24 22:25] VITALS: BP 108/58
[2017-06-25 07:13] VITALS: BP 118/56
--- NOTE | 2017-06-25 07:27 | PN- Housestaff ---
Tram BUSTILLOS,Franki 06/25/17 0726: Subjective Follow-up For: Acute respiratory failure, community-acquired pneumonia; Active EKG changes. Complaints: headache Tele-Events Since Last Visit: Sinus rhythm, heart rate ranging from 4464, lowest at 39. Asymptomatic. Subjective: I followed up and examined the patient today. She is resting comfortably in bed , but did complain of a mild headache, for which she has a history of migraine and Percocet usually works for her at home. She agreed to take IV Tylenol for that and if doesn't work, will go for Percocet. Her vital signs have been stable, no overnight events other than bradycardia noted as above. We'll try to titrate down her oxygen requirements today. Review of Systems Constitutional: Reports: see HPI. Neurological/Psychological: Reports: headache. Objective Last 24 Hrs of Vital Signs/I&O Vital Signs Date Time Temp Pulse Resp B/P B/P Pulse O2 O2 Flow FiO2 Mean Ox Delivery Rate 06/25 0759 96 Nasal 1.0L Cannula 06/25 0713 98.5 57 12 118/56 95 Nasal 1.0L Cannula 06/25 0000 95 Nasal 1.0L Cannula 06/24 2253 Nasal 1.0L Cannula 06/24 2225 98.8 65 16 108/58 97 Nasal 2.0L Cannula 06/24 1650 Nasal 2.0L Cannula 06/24 1650 98.3 98 16 102/60 95 Nasal Cannula 06/24 1617 97.3 68 18 108/674 98 Nasal 2.0L Cannula 06/24 1610 94 Intake & Output 06/25 1600 06/25 0800 06/25 0000 Intake Total 925 900 960 Output Total Balance 925 900 960 Intake, IV 525 800 600 Intake, Oral 400 100 360 Patient 58.967 kg Weight Physical Exam General Appearance: Alert, Oriented X3, Cooperative, No Acute Distress Skin: No Rashes, No Breakdown, No Significant Lesion HEENT: Atraumatic, PERRLA, EOMI, Mucous Membr. moist/pink Neck: Supple, No JVD Lymphatic: Cervical nl Cardiovascular: Regular Rate, Normal S1, Normal S2, No Murmurs Lungs: b/l wheezes Abdomen: Normal Bowel Sounds, Soft, No Tenderness Neurological: grossly intact Extremities: No Clubbing, No Cyanosis, No Edema, Normal Pulses, No Tenderness/ Swelling Vascular: Normal Pulses, Pulses Symmetrical Current Medications: Current Medications Sig/Tony Start time Last Medication Dose Route Stop Time Status Admin Acetaminophen 650 MG Q6P PRN 06/24 0430 AC PO Albuterol Sulfate 3 ML TID 06/25 1000 AC 06/24 INH 2235 Albuterol Sulfate 3 ML Q4H PRN 06/24 0500 AC INH Azithromycin 500 MG DAILY 06/24 1000 AC 06/24 Dextrose/Water 250 ML IV 1030 Ceftriaxone Sodium 0 .STK-MED ONE 06/24 1018 DC .ROUTE Ceftriaxone Sodium 1,000 MG DAILY 06/24 1000 AC 06/24 IV 1020 Enoxaparin Sodium 0 .STK-MED ONE 06/24 1018 DC SC Enoxaparin Sodium 40 MG DAILY 06/24 1000 AC 06/24 SC 1020 Guaifenesin 600 MG Q12 06/24 1000 AC 06/24 PO 205 Influenza Virus 0.5 ML ONCE ONE 06/24 1845 DC Vaccine IM 06/24 184 Levothyroxine Sodium 0.1 MG DAILY AC 06/24 0700 AC 06/25 PO 0541 Methylprednisolone 40 MG Q12 06/24 1000 AC 06/24 IV 205 Omeprazole 0 .STK-MED ONE 06/24 0753 DC PO Omeprazole 20 MG DAILY AC 06/24 0700 AC 06/25 PO 0541 Sodium Chloride 1,000 ML Q10H 06/24 1330 AC 06/25 IV 06/25 0929 0253 Sodium Chloride 500 ML BOLUS ONE 06/24 1330 DC 06/24 IV 06/24 1429 1359 Last 24 Hrs of Lab/Chris Results Last 24 Hrs of Labs/Mics: Laboratory Tests 06/25/17 0705: Sodium Pending, Potassium Pending, Chloride Pending, Carbon Dioxide Pending, Anion Gap Pending, BUN Pending, Creatinine Pending, BUN/Creatinine Ratio Pending , Magnesium Pending 06/24/171934: Lactic Acid 1.4 06/24/171934: Anion Gap 12, Estimated GFR > 60, BUN/Creatinine Ratio 24.0, CBC w Diff NO MAN DIFF REQ, RBC 3.16 L, MCV 98.6, MCH 33.7 H, MCHC 34.2, RDW 13.1, MPV 10.5 H, Gran % 92.1 H, Lymphocytes % 4.1 L, Monocytes % 3.7, Eosinophils % 0, Basophils % 0.1, Absolute Granulocytes 13.0 H, Absolute Lymphocytes 0.6 L, Absolute Monocytes 0.5, Absolute Eosinophils 0, Absolute Basophils 0 06/24/171727: Urine Opiates Screen 173.00, Methadone Screen 464 H, Barbiturate Screen < 60, Ur Phencyclidine Scrn < 6.00, Amphetamines Screen < 100, U Benzodiazepines Scrn < 85, Urine Cocaine Screen < 50, Urine Cannabis Screen < 5.00 06/24/17 1509: Troponin I < 0.01 06/24/17 1509: Lactic Acid 1.6 06/24/17 0836: Troponin I < 0.01 Microbiology 06/24 1727 URINE ROUT: Legionella Antigen - COMP 06/24 1727 URINE ROUT: Streptococcus pneumoniae Antigen (M - COMP STREP PNEUMO BACTERIAL AG Assessment/Plan Assessment: 42 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 She also complained of substernal chest pain, which seemed to be pleuritic, and took the first dose of oral antibiotic prescribed by urgent care clinic, but was getting worsening of symptoms, and presented to the emergency department. On presentation, her temperature was 100.3, pulse 103, respiration 30, BP 123/66 , SPO2 91% on room air, improved to 94% on 2 L oxygen via nasal cannula. See presented with moderate respiratory distress with bilateral wheezing and rhonchi on chest auscultation, and was admitted to the telemetry floor for continuous pulse ox monitoring, and management of following issues: #Acute respiratory failure, secondary to come the acquired pneumonia: She is doing much better, and we are titrating down her oxygen requirements today. Lab studies shows positive for Streptococcus antigen in urinary specimen so we are continuing her IV ceftriaxone but discontinuing azithromycin for now. We will continue with IV steroids 40 mg every 12 hours, TRC/nebs, Mucinex. #Active EKG changes, T-wave inversion, in the setting of pneumonia. Patient's EKG shows T-wave inversion, and later normalization, and with a history of recurrent chest pains, cardiac consultation was requested, and she does not seem to require further telemetry monitoring and can be followed up in outpatient setting if necessary. Appreciate cardio recommendations. #Migraine Continuing her homemeds (Percocet). #Continue rest of her home medications. #Diet: Regular diet #DVT ppx: SC Lovenox #Code status: Full code Problem List: 1. Pneumonia Pain Ratin Pain Location: headache Pain Goal: Pain 4 or less Pain Plan: prn, including percocet (home med) Tomorrow's Labs & Rationales: - Jair Jordan MD 06/25/17 1116: Attending MD Review Statement Attending Statement Attending MD Statement: examined this patient, discuss w/resident/PA/SENIOR SECURITY ARCHITECT, agreed w/resident/PA/SENIOR SECURITY ARCHITECT, reviewed EMR data (avail), discussed with nursing, discussed with case mgmt, amended to note Attending Assessment/Plan: Patient seen and examined. Reports feeling better this morning. Continues to complain of productive cough. She does be weaned off oxygen and is maintaining saturation on room air. On examination she has diffuse rhonchi bilaterally. Strep antigen test has returned positive. Patient also is complaining of migraine headaches. She reports that this is chronic for response to Percocet. Recommendations: -Discontinue azithromycin and continue antibiotic therapy with ceftriaxone. -Continue bronchodilator therapy. -Mobilize patient. -No events on telemetry monitoring overnight. Obtain 12-lead EKG this morning. If no significant changes discontinue telemetry monitoring. -Begin patient on Percocet for her migraine headaches. -No indication for repeat labs in the morning unless there is a change in her clinical status.
--- NOTE | 2017-06-25 11:44 | PN- Cardiology ---
Subjective Subjective: The patient is still feeling short of breath and coughing. She is afebrile. Her echocardiogram looks pretty normal. There were no significant arrhythmias. Enzymes were all negative. EKG does not show any significant abnormalities this morning. Objective Vital Signs and I&Os Vital Signs Date Time Temp Pulse Resp B/P B/P Pulse O2 O2 Flow FiO2 Mean Ox Delivery Rate 06/25 0759 96 Nasal 1.0L Cannula 06/25 0713 98.5 57 12 118/56 95 Nasal 1.0L Cannula 06/25 0000 95 Nasal 1.0L Cannula 06/24 2253 Nasal 1.0L Cannula 06/24 2225 98.8 65 16 108/58 97 Nasal 2.0L Cannula 06/24 1650 Nasal 2.0L Cannula 06/24 1650 98.3 98 16 102/60 95 Nasal Cannula 06/24 1617 97.3 68 18 108/674 98 Nasal 2.0L Cannula 06/24 1610 94 / 1417 98.2 56 18 111/66 96 Nasal 2.5L Cannula Intake & Output 06/25 1600 06/25 0800 06/25 0000 06/24 1600 06/24 0800 06/24 0000 Intake Total 900 397 042 4096 Output Total Balance 900 409 356 9078 Intake, IV 800 041 066 3517 Intake, Oral 100 360 Patient 130 lb 130 lb Weight Physical Exam: HEENT exam is normal Chest reveals rhonchi and some mild expiratory wheezing Heart regular rhythm no murmurs Current Medications: Current Medications Sig/Toyn Start time Last Medication Dose Route Stop Time Status Admin Acetaminophen 1,000 MG Q6P PRN 06/25 0845 AC 06/25 IV 0922 Acetaminophen 650 MG Q6P PRN 06/24 0430 AC PO Albuterol Sulfate 3 ML TID 06/25 1000 AC 06/25 INH 0756 Albuterol Sulfate 3 ML Q4H PRN 06/24 0500 AC INH Azithromycin 500 MG DAILY 06/24 1000 DC 06/24 Dextrose/Water 250 ML IV 1030 Ceftriaxone Sodium 1,000 MG DAILY 06/24 1000 AC 06/25 IV 0922 Enoxaparin Sodium 40 MG DAILY 06/24 1000 AC 06/24 SC 1020 Guaifenesin 600 MG Q12 06/24 1000 AC 06/24 PO 205 Influenza Virus 0.5 ML ONCE ONE 06/24 1844 DC Vaccine IM 06/24 1846 Levothyroxine Sodium 0.1 MG DAILY AC 06/24 0700 AC 06/25 PO 0541 Methylprednisolone 40 MG Q12 06/24 1000 AC 06/25 IV 0922 Omeprazole 20 MG DAILY AC 06/24 0700 AC 06/25 PO 0541 Oxycodone/ 1 TAB Q6PRN PRN 06/25 1045 AC 06/25 Acetaminophen PO 1050 Polyethylene Glycol 17 GM DAILY NEEDED PRN 06/25 1045 PO Sodium Chloride 1,000 ML Q10H 06/24 1330 DC 06/25 IV 06/25 0929 0253 Sodium Chloride 500 ML BOLUS ONE 06/24 1330 DC 06/24 IV 06/24 1429 1359 Results Last 48 Hrs of Labs/Mics: Laboratory Tests 06/25/17 1045: CBC w Diff Pending, WBC Pending, RBC Pending, Hgb Pending, Hct Pending, MCV Pending, MCH Pending, MCHC Pending, RDW Pending, Plt Count Pending, MPV Pending 06/25/17 0705: Anion Gap 13, Estimated GFR > 60, BUN/Creatinine Ratio 24.0, Magnesium 2.1 06/24/171934: Lactic Acid 1.4 06/24/17 193: Anion Gap 12, Estimated GFR > 60, BUN/Creatinine Ratio 24.0, CBC w Diff NO MAN DIFF REQ, RBC 3.16 L, MCV 98.6, MCH 33.7 H, MCHC 34.2, RDW 13.1, MPV 10.5 H, Gran % 92.1 H, Lymphocytes % 4.1 L, Monocytes % 3.7, Eosinophils % 0, Basophils % 0.1, Absolute Granulocytes 13.0 H, Absolute Lymphocytes 0.6 L, Absolute Monocytes 0.5, Absolute Eosinophils 0, Absolute Basophils 0 06/24/17 1850: Lactic Acid Cancelled 06/24/17 1728: Urine Opiates Screen 173.00, Methadone Screen 464 H, Barbiturate Screen < 60, Ur Phencyclidine Scrn < 6.00, Amphetamines Screen < 100, U Benzodiazepines Scrn < 85, Urine Cocaine Screen < 50, Urine Cannabis Screen < 5.00 06/24/17 1509: Troponin I < 0.01 06/24/17 1509: Lactic Acid 1.6 06/24/17 0836: Troponin I < 0.01 06/24/17 0426: Lactic Acid Cancelled 06/24/17 0323: Lactic Acid Cancelled 06/24/17 0209: Troponin I < 0.01 06/24/17 0105: Virus Culture Pending 06/23/17 2315: Anion Gap 19 H, Estimated GFR > 60, BUN/Creatinine Ratio 16.0, Glucose 121 H, Lactic Acid 4.6 H, Calcium 9.3, Total Bilirubin 1.0, AST 18, ALT 19, Alkaline Phosphatase 65, Troponin I < 0.01, Total Protein 7.2, Albumin 4.7, Globulin 2.5, Albumin/Globulin Ratio 1.9, Lipase 21 L, TSH 0.297, Total Beta HCG NEGATIVE, PT 12.1, INR 1.15, APTT 31, D-Dimer High Sensitivty 276 H, CBC w Diff MAN DIFF ORDERED, RBC 3.80 L, MCV 98.8, MCH 33.0 H, MCHC 33.3, RDW 13.4, MPV 9.4, Gran % 95.8 H, Lymphocytes % 2.5 L, Monocytes % 1.2 L, Eosinophils % 0, Basophils % 0.5, Absolute Granulocytes 16.2 H, Segmented Neutrophils 95 H, Band Neutrophils 1, Absolute Lymphocytes 0.4 L, Lymphocytes 2 L, Monocytes 2, Absolute Monocytes 0.2, Absolute Eosinophils 0, Absolute Basophils 0.1, Platelet Estimate VERIFIED BY SMEAR, Normocytic RBCs VERIFIED, Normochromic RBCs VERIFIED , Fld Total RBCs Counted 100, Serum Alcohol < 10.0 Microbiology 06/24 1727 URINE ROUT: Legionella Antigen - COMP 06/24 1727 URINE ROUT: Streptococcus pneumoniae Antigen (M - COMP STREP PNEUMO BACTERIAL AG 06/24 107 NASOPHARYN: Influenza Virus A & B Rapid Smear - COMP Recent Imaging Studies: CONCLUSIONS No significant chamber abnormalities. No significant valve abnormalities. Normal transthoracic echocardiogram. Physiologic valvular regurgitation. The aortic arch and great vessels are not well seen. Emery Meadows M.D. (Electronically Signed) Final Date: 25 June 2017 12:09 Assessment/Plan Assessment/Plan The patient is stable from a cardiac standpoint. I think her transient EKG changes were just due to respiratory distress and hypoxia. Her cardiac workup was essentially normal at this time. She can be discontinued from telemetry. Please call for further cardiac input. Continue telemetry? No
[2017-06-25 11:52] LABS: ABSOLUTE BASOPHIL COUNT 0 /CUMM (0.0-0.2); ABSOLUTE EOSINOPHIL COUNT 0 /CUMM (0.0-0.7); ABSOLUTE GRANULOCYTE CT 11.3 /CUMM (1.4-6.5); ABSOLUTE LYMPH COUNT 0.6 /CUMM (1.2-3.4); ABSOLUTE MONOCYTE COUNT 0.2 /CUMM (0.10-0.60); BASOPHIL % 0 % (0.0-2.0); EOSINOPHIL % 0 % (0-5); HEMATOCRIT 32.6 % (37-47); MEAN CORPUSCULAR HGB 32.3 PG (27.0-31.0); MEAN CORPUSCULAR HGB CONC 32.3 G/DL (33.0-37.0); MEAN CORPUSCULAR VOLUME 100.1 FL (81.0-99.0); PLATELET COUNT 158 /CUMM (130-400); RBC DISTRIBUTION WIDTH 13.4 % (11.5-14.5); RED BLOOD CELL CT 3.25 /CUMM (4.20-5.40); WHITE BLOOD CELL COUNT 12.1 /CUMM (4.8-10.8)
--- NOTE | 2017-06-25 12:09 | ECHOCARDIOGRAM REPORT ---
ELIZABETH MONROE Age: 42 : 1975 Gender: F Exam Date: 06/24/2017 18:50 Exam Location: [address] [facility] Ht (in): 65 Wt (lb): 130 BSA: 1.65 BP: 108 / 67 Ordering Physician: Franki Ugalde MD Referring Physician: Emery Meadows MD Chief, SoC Technologist: Quyen Weinstein [facility] Room Number: [id number] Indications: CHEST PAIN Rhythm: Technical Quality: Good FINDINGS Left Ventricle Normal left ventricular size, wall thickness and systolic function with no obvious regional wall motion abnormalities. Normal left ventricular diastolic filling pattern for age. The ejection fraction is visually estimated at >65 %. Right Ventricle The right ventricle is normal in size and function. Right Atrium The right atrium is normal in size. Left Atrium The left atrium is normal in size. The interatrial septum is intact. Mitral Valve The mitral valve is normal in structure and function. There is trace mitral regurgitation. Aortic Valve Structurally normal aortic valve without significant sclerosis or stenosis. There is no aortic regurgitation. Tricuspid Valve The tricuspid valve is normal in structure and function. There is mild tricuspid regurgitation. Pulmonary artery systolic pressure is normal. Pulmonic Valve Structurally normal pulmonic valve. There is no pulmonic regurgitation. Pericardium Normal pericardium without effusion. No pleural effusion. Great Vessels Normal aortic root dimension. The aortic arch and great vessels are not well seen. CONCLUSIONS No significant chamber abnormalities. No significant valve abnormalities. Normal transthoracic echocardiogram. Physiologic valvular regurgitation. The aortic arch and great vessels are not well seen. Emery Meadows M.D. (Electronically Signed) Final Date: 25 June 2017 12:09 MEASUREMENTS (Male / Female) Normal Values 2D ECHO LV Diastolic Diameter PLAX 3.6 cm 4.2 - 5.9 / 3.9 - 5.3 cm LV Systolic Diameter PLAX 2.3 cm 2.1 - 4.0 cm LV Fractional Shortening PLAX 36.1 % 25 - 46 % LV Ejection Fraction 2D Teich 66.7 % IVS Diastolic Thickness 0.8 cm LVPW Diastolic Thickness 0.8 cm LV Relative Wall Thickness 0.4 RV Internal Dim ED PLAX 2.7 cm 1.9 - 3.8 cm LVOT Diameter 1.9 cm Aortic Root Diameter 2.6 cm LA Systolic Diameter LX 2.9 cm 3.0 - 4.0 / 2.7 - 3.8 cm LA Volume 43.0 cm 18 - 58 / 22 - 52 cm Ascending Aorta Diameter 2.7 cm DOPPLER AV Peak Velocity 145.0 cm/s AV Peak Gradient 8.4 mmHg AV Mean Velocity 103.0 cm/s AV Mean Gradient 5.0 mmHg AV Velocity Time Integral 34.7 cm LVOT Peak Velocity 154.0 cm/s LVOT Peak Gradient 9.5 mmHg LVOT Mean Velocity 87.5 cm/s LVOT Mean Gradient 4.0 mmHg LVOT Velocity Time Integral 29.8 cm LVOT Stroke Volume 84.5 cm AV Area Cont Eq vti 2.4 cm AV Area Cont Eq pk 3.0 cm MV Peak Velocity 114.0 cm/s MV Peak Gradient 5.2 mmHg MV Mean Velocity 63.4 cm/s MV Mean Gradient 2.0 mmHg Mitral E Point Velocity 115.0 cm/s Mitral A Point Velocity 77.5 cm/s Mitral E to A Ratio 1.5 MV PHT Velocity 118.0 cm/s MV Deceleration [place] 658.0 cm/s MV Pressure Half Time 53.8 ms MV Area PHT 4.1 cm MV Deceleration Time 195.0 ms TR Peak Velocity 234.0 cm/s TR Peak Gradient 21.9 mmHg Right Atrial Pressure 5.0 mmHg Pulmonary Artery Systolic Pressu 26.9 mmHg Right Ventricular Systolic Press 26.9 mmHg PV Peak Velocity 90.9 cm/s PV Peak Gradient 3.3 mmHg PV Mean Velocity 65.6 cm/s PV Mean Gradient 2.0 mmHg PV Velocity Time Integral 18.4 cm LV E' Lateral Velocity 14.3 cm/s Mitral E to LV E' Lateral Ratio 8.0 LV E' Septal Velocity 13.1 cm/s Mitral E to LV E' Septal Ratio 8.8
[2017-06-25 12:52] LABS: GRANULOCYTE % 93.9 % (42.2-75.2)
[2017-06-25 14:35] VITALS: BP 110/72
--- NOTE | 2017-06-25 21:38 | Discharge Summary ---
Visit Information Visit Dates Admission Date: 06/24/17 Discharge Date: 06/27/17 Hospital Course Course Attending Physician: Jair Jordan MD Primary Care Physician: Mikaela Garza APRN changed to Dr Connor Cochran per patient's request. 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 She also complained of substernal chest pain, which seemed to be pleuritic, and took the first dose of oral antibiotic prescribed by urgent care clinic, but was getting worsening of symptoms, and presented to the emergency department. On presentation, her temperature was 100.3, pulse 103, respiration 30, BP 123/66 , SPO2 91% on room air, improved to 94% on 2 L oxygen via nasal cannula. She presented with moderate respiratory distress with bilateral wheezing and rhonchi on chest auscultation, and was admitted to the telemetry floor for continuous pulse oxygen monitoring, and management of following issues: #Acute respiratory failure, secondary to come the acquired pneumonia: After receiving IV ceftriaxone, IV steroids and nebulizations, patient got better and is being discharged with oral antibiotic Augmentin and a quick tapering dose of steroids. Of note, lab studies shows positive for Streptococcus antigen in urinary specimen. She is a young patient, who had to be admitted for acute respiratory failure secondary to community acquired pneumonia with failed outpatient oral regarding therapy. She could benefit from a chest x-ray to be repeated in 2 weeks' time and follow up with her primary care physician. #Active EKG changes, T-wave inversion, in the setting of pneumonia. Patient's EKG showed T-wave inversion, and later normalization, and with a history of recurrent chest pains, cardiac consultation was requested, and can be followed up in outpatient setting if necessary. Cardiology recommendation followed. No active issues. #Migraine Continued her homemeds (Percocet). #Continued rest of her home medications. #Diet: Regular diet #DVT ppx: SC Lovenox #Code status: Full code Patient has been given a referral for [facility] physicians clinic upon request. Complications: none Allergies: Coded Allergies: No Known Allergies (11/03/15) Significant Procedures: CT angiogram done on 06/24/2017: FINDINGS: QUALITY OF STUDY/CONTRAST BOLUS: Satisfactory PULMONARY ARTERIES: No central or segmental pulmonary emboli. THORACIC AORTA: No aneurysm or dissection. LUNG: Scattered small focal groundglass opacities, infiltrate, in the anterior medial left upper lobe and right upper lobe. No bronchiectasis or reticular opacities. Small focus of consolidation atelectasis at the medial right middle lobe. Central bronchial airways are open. PLEURA: No pleural effusion or pneumothorax. MEDIASTINUM: Normal heart size. No pericardial effusion. No hilar or mediastinal lymphadenopathy. No evidence of septal bowing or right heart strain. CHEST WALL/AXILLA: No axillary or internal mammary lymphadenopathy. OSSEOUS STRUCTURES: No acute or suspicious osseous abnormality. UPPER ABDOMEN: 2 cm hypodensity likely hepatic cyst in left lobe of liver. Adrenal glands normal. No reflux of contrast into the hepatic veins to suggest elevated right heart pressures. IMPRESSION: 1. No evidence of pulmonary embolism. 2. Small scattered focus of groundglass infiltrates in the medial central anterior right upper lobe and left upper lobe. Small focus of consolidation/atelectasis at the medial right middle lobe. Would favor an infectious or inflammatory etiology. VTE: negative DICTATED BY: Miah Whalen MD DATE/TIME DICTATED:06/24/17208 LOCAL BULK DRIVER:OVI DATE/TIME TRANSCRIBED:06/24/17208 Echocardiogram done on 06/25/2017: FINDINGS Left Ventricle Normal left ventricular size, wall thickness and systolic function with no obvious regional wall motion abnormalities. Normal left ventricular diastolic filling pattern for age. The ejection fraction is visually estimated at >65 %. Right Ventricle The right ventricle is normal in size and function. Right Atrium The right atrium is normal in size. Left Atrium The left atrium is normal in size. The interatrial septum is intact. Mitral Valve The mitral valve is normal in structure and function. There is trace mitral regurgitation. Aortic Valve Structurally normal aortic valve without significant sclerosis or stenosis. There is no aortic regurgitation. Tricuspid Valve The tricuspid valve is normal in structure and function. There is mild tricuspid regurgitation. Pulmonary artery systolic pressure is normal. Pulmonic Valve Structurally normal pulmonic valve. There is no pulmonic regurgitation. Pericardium Normal pericardium without effusion. No pleural effusion. Great Vessels Normal aortic root dimension. The aortic arch and great vessels are not well seen. CONCLUSIONS No significant chamber abnormalities. No significant valve abnormalities. Normal transthoracic echocardiogram. Physiologic valvular regurgitation. The aortic arch and great vessels are not well seen. Emery Meadows M.D. (Electronically Signed) Final Date: 25 June 2017 12:09 MEASUREMENTS (Male / Female) Normal Values 2D ECHO LV Diastolic Diameter PLAX 3.6 cm 4.2 - 5.9 / 3.9 - 5.3 cm LV Systolic Diameter PLAX 2.3 cm 2.1 - 4.0 cm LV Fractional Shortening PLAX 36.1 % 25 - 46 % LV Ejection Fraction 2D Teich 66.7 % IVS Diastolic Thickness 0.8 cm LVPW Diastolic Thickness 0.8 cm LV Relative Wall Thickness 0.4 RV Internal Dim ED PLAX 2.7 cm 1.9 - 3.8 cm LVOT Diameter 1.9 cm Aortic Root Diameter 2.6 cm LA Systolic Diameter LX 2.9 cm 3.0 - 4.0 / 2.7 - 3.8 cm LA Volume 43.0 cm 18 - 58 / 22 - 52 cm Ascending Aorta Diameter 2.7 cm DOPPLER AV Peak Velocity 145.0 cm/s AV Peak Gradient 8.4 mmHg AV Mean Velocity 103.0 cm/s AV Mean Gradient 5.0 mmHg AV Velocity Time Integral 34.7 cm LVOT Peak Velocity 154.0 cm/s LVOT Peak Gradient 9.5 mmHg LVOT Mean Velocity 87.5 cm/s LVOT Mean Gradient 4.0 mmHg LVOT Velocity Time Integral 29.8 cm LVOT Stroke Volume 84.5 cm AV Area Cont Eq vti 2.4 cm AV Area Cont Eq pk 3.0 cm MV Peak Velocity 114.0 cm/s MV Peak Gradient 5.2 mmHg MV Mean Velocity 63.4 cm/s MV Mean Gradient 2.0 mmHg Mitral E Point Velocity 115.0 cm/s Mitral A Point Velocity 77.5 cm/s Mitral E to A Ratio 1.5 MV PHT Velocity 118.0 cm/s MV Deceleration [place] 658.0 cm/s MV Pressure Half Time 53.8 ms MV Area PHT 4.1 cm MV Deceleration Time 195.0 ms TR Peak Velocity 234.0 cm/s TR Peak Gradient 21.9 mmHg Right Atrial Pressure 5.0 mmHg Pulmonary Artery Systolic Pressu 26.9 mmHg Right Ventricular Systolic Press 26.9 mmHg PV Peak Velocity 90.9 cm/s PV Peak Gradient 3.3 mmHg PV Mean Velocity 65.6 cm/s PV Mean Gradient 2.0 mmHg PV Velocity Time Integral 18.4 cm LV E' Lateral Velocity 14.3 cm/s Mitral E to LV E' Lateral Ratio 8.0 LV E' Septal Velocity 13.1 cm/s Mitral E to LV E' Septal Ratio 8.8 DICTATED BY: Emery Meadows MD, V. DATE/TIME DICTATED:06/25/171208 LOCAL BULK DRIVER:OVI DATE/TIME TRANSCRIBED:06/25/171208 Pertinent Lab Results: Laboratory Tests 06/25 06/25 06/24 1045 0705 1935 Chemistry Sodium (137 - 145 mmol/L) 145 Potassium (3.5 - 5.1 mmol/L) 4.0 Chloride (98 - 107 mmol/L) 113 H Carbon Dioxide (22 - 30 mmol/L) 18 L Anion Gap (5 - 16) 13 BUN (7 - 17 mg/dL) 12 Creatinine (0.5 - 1.0 mg/dL) 0.5 Estimated GFR (>60 ml/min) > 60 BUN/Creatinine Ratio (7 - 25 %) 24.0 Lactic Acid (0.7 - 2.1 mmol/L) 1.4 Magnesium (1.6 - 2.3 mg/dL) 2.1 Hematology CBC w Diff NO MAN DIFF REQ WBC (4.8 - 10.8 /CUMM) 12.1 H RBC (4.20 - 5.40 /CUMM) 3.25 L Hgb (12.0 - 16.0 G/DL) 10.5 L Hct (37 - 47 %) 32.6 L MCV (81.0 - 99.0 FL) 100.1 H MCH (27.0 - 31.0 PG) 32.3 H MCHC (33.0 - 37.0 G/DL) 32.3 L RDW (11.5 - 14.5 %) 13.4 Plt Count (130 - 400 /CUMM) 158 MPV (7.4 - 10.4 FL) 11.0 H Gran % (42.2 - 75.2 %) 93.9 H Lymphocytes % (20.5 - 51.1 %) 4.7 L Monocytes % (1.7 - 9.3 %) 1.4 L Eosinophils % (0 - 5 %) 0 Basophils % (0.0 - 2.0 %) 0 Absolute Granulocytes (1.4 - 6.5 /CUMM) 11.3 H Absolute Lymphocytes (1.2 - 3.4 /CUMM) 0.6 L Absolute Monocytes (0.10 - 0.60 /CUMM) 0.2 Absolute Eosinophils (0.0 - 0.7 /CUMM) 0 Absolute Basophils (0.0 - 0.2 /CUMM) 0 06/24 1935 Chemistry Sodium (137 - 145 mmol/L) 143 Potassium (3.5 - 5.1 mmol/L) 3.8 Chloride (98 - 107 mmol/L) 112 H Carbon Dioxide (22 - 30 mmol/L) 19 L Anion Gap (5 - 16) 12 BUN (7 - 17 mg/dL) 12 Creatinine (0.5 - 1.0 mg/dL) 0.5 Estimated GFR (>60 ml/min) > 60 BUN/Creatinine Ratio (7 - 25 %) 24.0 Hematology CBC w Diff NO MAN DIFF REQ WBC (4.8 - 10.8 /CUMM) 14.1 H RBC (4.20 - 5.40 /CUMM) 3.16 L Hgb (12.0 - 16.0 G/DL) 10.7 L Hct (37 - 47 %) 31.2 L MCV (81.0 - 99.0 FL) 98.6 MCH (27.0 - 31.0 PG) 33.7 H MCHC (33.0 - 37.0 G/DL) 34.2 RDW (11.5 - 14.5 %) 13.1 Plt Count (130 - 400 /CUMM) 143 MPV (7.4 - 10.4 FL) 10.5 H Gran % (42.2 - 75.2 %) 92.1 H Lymphocytes % (20.5 - 51.1 %) 4.1 L Monocytes % (1.7 - 9.3 %) 3.7 Eosinophils % (0 - 5 %) 0 Basophils % (0.0 - 2.0 %) 0.1 Absolute Granulocytes (1.4 - 6.5 /CUMM) 13.0 H Absolute Lymphocytes (1.2 - 3.4 /CUMM) 0.6 L Absolute Monocytes (0.10 - 0.60 /CUMM) 0.5 Absolute Eosinophils (0.0 - 0.7 /CUMM) 0 Absolute Basophils (0.0 - 0.2 /CUMM) 0 Disposition Summary Disposition Principal Diagnosis: Acute respiratory failure, secondary to community-acquired pneumonia, failed outpatient oral antibiotic therapy. 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 Please return to emergency if symptoms worsen. Medications at Discharge Discharge Medications: Continue taking these medications: Levothyroxine Sodium (Levothyroxine Sodium) 100 MCG TABLET 0.1 Milligram ORAL DAILY BEFORE BREAKFAST Comments: LAST TAKEN 09/25 0600 Oxycodone HCl/Acetaminophen (Percocet 5-325 MG Tablet) 1 EACH TABLET 1 Tablet ORAL DAILY as needed for PAIN Qty = 2 Start taking the following new medications: Prednisone (Prednisone) 10 MG TABLET 0 ORAL SEE INSTRUCTIONS Qty = 13 No Refills Instructions: TAKE 3 TAB FOR 2 DAYS (06/28/16-06/29/17) TAKE 2 TAB FOR 2 DAYS (06/30/17-07/01/17) TAKE 1 TAB FOR 2 DAYS (07/02/17-07/03/17) THEN STOP.. Comments: Last Taken: 06/27/17 Time: 0806 TAKE 3 TAB FOR 2 DAYS (06/28/16-06/29/17) TAKE 2 TAB FOR 2 DAYS (06/30/17-07/01/17) TAKE 1 TAB FOR 2 DAYS (07/02/17-07/03/17) THEN STOP. Omeprazole (Omeprazole) 20 MG CAPSULE.DR 20 Milligram ORAL DAILY BEFORE BREAKFAST Qty = 30 No Refills Instructions: . Comments: Last Taken: 06/27/17 Time: 0556 Guaifenesin (Guaifenesin ER) 600 MG TAB.ER.12H 1 Tablet ORAL EVERY 12 HOURS Qty = 14 No Refills Instructions: . Comments: Last Taken: 06/27/17 Time: 0806 Amoxicillin/Potassium Clav (Augmentin 875-125 Tablet) 875 MG-125 MG TABLET 1 Tablet ORAL TWICE DAILY Qty = 13 No Refills Instructions: . Comments: NOT GIVEN IN HOSPITAL Copies To: Sammie BUSTILLOS,Connor Soto Attending MD Review Statement Documenting Attending: Jair Jordan MD Other Findings: Discharged in stable condition
[2017-06-25 21:53] VITALS: BP 122/64
[2017-06-26 06:39] VITALS: BP 124/58
--- NOTE | 2017-06-26 07:38 | PN- Housestaff ---
Tram BUSTILLOS,Franki 06/26/17 0737: Subjective Follow-up For: Acute respiratory failure, community-acquired pneumonia; Active EKG changes. Complaints: no complaints Tele-Events Since Last Visit: Off telemetry Subjective: I followed up and examined the patient today. She is resting comfortably in her bed, and having her respiratory treatment. She does not appear to be in distress, and does not have any complaints. She mentioned that she is breathing much better, and is looking forward to getting discharged soon. Vital signs have been stable, no overnight issues reported. Review of Systems Constitutional: Reports: no symptoms. Objective Last 24 Hrs of Vital Signs/I&O Vital Signs Date Time Temp Pulse Resp B/P B/P Pulse O2 O2 Flow FiO2 Mean Ox Delivery Rate 06/26 1429 97 Room Air Room Air 06/26 1426 98.1 52 20 110/68 95 Room Air 06/26 0824 97 Room Air Room Air 06/26 0800 94 Room Air Room Air 06/26 0639 97.9 51 20 124/58 95 Room Air 06/26 0000 Room Air Room Air 06/25 2153 98.5 59 18 122/64 96 Room Air 06/25 1910 94 Room Air Intake & Output 06/26 1600 06/26 0800 02/07 0000 Intake Total 480 100 111 Output Total 400 Balance 480 100 -289 Intake, IV 11 Intake, Oral 480 100 100 Output, Urine 400 Physical Exam General Appearance: Alert, Oriented X3, Cooperative, No Acute Distress Other Physical Findings: Skin: No Rashes, No Breakdown, No Significant Lesion HEENT: Atraumatic, PERRLA, EOMI, Mucous Membr. moist/pink Neck: Supple, No JVD Lymphatic: Cervical nl Cardiovascular: Regular Rate, Normal S1, Normal S2, No Murmurs Lungs: b/l wheezes Abdomen: Normal Bowel Sounds, Soft, No Tenderness Neurological: grossly intact Extremities: No Clubbing, No Cyanosis, No Edema, Normal Pulses, No Tenderness/ Swelling Vascular: Normal Pulses, Pulses Symmetrical Current Medications: Current Medications Sig/Tony Start time Last Medication Dose Route Stop Time Status Admin Acetaminophen 1,000 MG Q6P PRN 06/25 0845 AC 06/25 IV 0922 Acetaminophen 650 MG Q6P PRN 06/24 0430 AC PO Albuterol Sulfate 3 ML TID 06/25 1000 AC 06/26 INH 1406 Albuterol Sulfate 3 ML Q4H PRN 06/24 0500 AC INH Ceftriaxone Sodium 1,000 MG DAILY 06/24 1000 AC 06/26 IV 0902 Enoxaparin Sodium 40 MG DAILY 06/24 1000 AC 06/26 SC 0911 Guaifenesin 600 MG Q12 06/24 1000 AC 06/26 PO 0902 Levothyroxine Sodium 0.1 MG DAILY AC 06/24 0700 AC 06/26 PO 0557 Methylprednisolone 40 MG Q12 06/24 1000 DC 06/26 IV 0902 Omeprazole 20 MG DAILY AC 06/24 0700 AC 06/26 PO 0557 Oxycodone/ 1 TAB Q6PRN PRN 06/25 1045 AC 06/26 Acetaminophen PO 0821 Polyethylene Glycol 17 GM DAILY NEEDED PRN 06/25 1045 AC PO Prednisone 40 MG DAILY 06/27 1000 AC PO Assessment/Plan Assessment: 42 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 She also complained of substernal chest pain, which seemed to be pleuritic, and took the first dose of oral antibiotic prescribed by urgent care clinic, but was getting worsening of symptoms, and presented to the emergency department. On presentation, her temperature was 100.3, pulse 103, respiration 30, BP 123/66 , SPO2 91% on room air, improved to 94% on 2 L oxygen via nasal cannula. See presented with moderate respiratory distress with bilateral wheezing and rhonchi on chest auscultation, and was admitted to the telemetry floor for continuous pulse ox monitoring, and management of following issues: #Acute respiratory failure, secondary to come the acquired pneumonia: She is doing much better, and we are titrating down her oxygen requirements today. Lab studies shows positive for Streptococcus antigen in urinary specimen so we are continuing her IV ceftriaxone. Plan to switch to PO abx tomorrow. IV steroids have been changed to oral prednisone starting tomorrow. Will continue TRC/nebs, Mucinex. #Active EKG changes, T-wave inversion, in the setting of pneumonia. Patient's EKG shows T-wave inversion, and later normalization, and with a history of recurrent chest pains, cardiac consultation was requested, and can be followed up in outpatient setting if necessary. Appreciate cardiology recommendations. #Migraine Continuing her homemeds (Percocet). #Continue rest of her home medications. #Diet: Regular diet #DVT ppx: [place] Lovenox #Code status: Full code Problem List: 1. Pneumonia Pain Ratin Pain Location: - Pain Goal: Pain 4 or less Pain Plan: prn Tomorrow's Labs & Rationales: - Julian BUSTILLOS,Jair 06/26/17 1514: Attending MD Review Statement Attending Statement Attending MD Statement: examined this patient, discuss w/resident/PA/OUTCOMES MANAGER, agreed w/resident/PA/OUTCOMES MANAGER, reviewed EMR data (avail), discussed with nursing, discussed with case mgmt, amended to note Attending Assessment/Plan: Patient seen and examined. Resting comfortably not in acute distress. Reports feeling better this morning. Still complaining of significant productive cough. She has been weaned off oxygen supplementation. On examination she has mild diffuse rhonchi bilaterally. Continue IV antibiotic therapy. Wean down steroid therapy. If patient continues to maintain saturation on room air and remains afebrile she may be discharged home tomorrow. She will be discharged on a prednisone taper and recommendations to follow-up as an outpatient with a repeat chest x-ray
--- NOTE | 2017-06-26 13:21 | PN- Student ---
Subjective Subjective: 42 yo F hospital day 3 for pneumonia. PMHx of hypothyroid s/p thyroidectomy. She states that she slept well last night. She is experiencing chest and back pain that she attributes to the frequent coughing, says it is 8/10. She continues to have a productive cough with greenish sputum. Despite the continued cough, believes that breathing is becoming easier. She does experience some dizziness when initially standing but then can ambulate without difficulty. Denies headaches, n/v, abdominal pain, or calf pain. Objective Objective: Vital Signs Date Time Temp Pulse Resp B/P B/P Pulse O2 O2 Flow FiO2 Mean Ox Delivery Rate 06/26 0824 97 Room Air Room Air 06/26 0800 94 Room Air Room Air 06/26 0639 97.9 51 20 124/58 95 Room Air 06/26 0000 Room Air Room Air 06/25 2153 98.5 59 18 122/64 96 Room Air 06/25 1910 94 Room Air 06/25 1435 97.8 58 18 110/72 95 Room Air Intake & Output 06/26 1600 06/26 0800 06/26 0000 Intake Total 100 111 Output Total 400 Balance 100 -289 Intake, IV 11 Intake, Oral 100 100 Output, Urine 400 Appearance: AleRt and oriented x3 in NAD HEENT: Atraumatic, normocephalic with appropriately moist mucus membranes Cardio: Regular rate and rhythm, no murmurs, rubs, or gallops Pulm: Bilateral rhoni auscultated. No stridor, and no accessory muscles of respiration in use. Abdomen/GI: Normoactive bowel sounds, soft with no TTP, rigidity, or rebound tendeness Extremities: 2+ distal pulses, no erythema, edema, or TTP of the calves bilaterally. Current Medications Sig/Tony Start time Last Medication Dose Route Stop Time Status Admin Acetaminophen 1,000 MG Q6P PRN 06/25 0845 AC 06/25 IV 0922 Acetaminophen 650 MG Q6P PRN 06/24 0430 AC PO Albuterol Sulfate 3 ML TID 06/25 1000 AC 06/26 INH 0820 Albuterol Sulfate 3 ML Q4H PRN 06/24 0500 AC INH Ceftriaxone Sodium 1,000 MG DAILY 06/24 1000 AC 06/26 IV 0902 Enoxaparin Sodium 40 MG DAILY 06/24 1000 AC 06/26 SC 0911 Guaifenesin 600 MG Q12 06/24 1000 AC 06/26 PO 0902 Levothyroxine Sodium 0.1 MG DAILY AC 06/24 07 AC 06/26 PO 0557 Methylprednisolone 40 MG Q12 06/24 1000 DC 06/26 IV 0902 Omeprazole 20 MG DAILY AC 06/24 07 AC 06/26 PO 0557 Oxycodone/ 1 TAB Q6PRN PRN 06/25 1045 AC 06/26 Acetaminophen PO 0821 Polyethylene Glycol 17 GM DAILY NEEDED PRN 06/25 104 AC PO Prednisone 40 MG DAILY 06/27 1000 AC PO Results Results: Laboratory Tests 06/25/17 1045: CBC w Diff NO MAN DIFF REQ, RBC 3.25 L, MCV 100.1 H, MCH 32.3 H, MCHC 32.3 L , RDW 13.4, MPV 11.0 H, Gran % 93.9 H, Lymphocytes % 4.7 L, Monocytes % 1.4 L, Eosinophils % 0, Basophils % 0, Absolute Granulocytes 11.3 H, Absolute Lymphocytes 0.6 L, Absolute Monocytes 0.2, Absolute Eosinophils 0, Absolute Basophils 0 06/25/17 0705: Anion Gap 13, Estimated GFR > 60, BUN/Creatinine Ratio 24.0, Magnesium 2.1 06/24/171934: Lactic Acid 1.4 06/24/171934: Anion Gap 12, Estimated GFR > 60, BUN/Creatinine Ratio 24.0, CBC w Diff NO MAN DIFF REQ, RBC 3.16 L, MCV 98.6, MCH 33.7 H, MCHC 34.2, RDW 13.1, MPV 10.5 H, Gran % 92.1 H, Lymphocytes % 4.1 L, Monocytes % 3.7, Eosinophils % 0, Basophils % 0.1, Absolute Granulocytes 13.0 H, Absolute Lymphocytes 0.6 L, Absolute Monocytes 0.5, Absolute Eosinophils 0, Absolute Basophils 0 06/24/17 1850: Lactic Acid Cancelled 06/24/17 1728: Urine Opiates Screen 173.00, Methadone Screen 464 H, Barbiturate Screen < 60, Ur Phencyclidine Scrn < 6.00, Amphetamines Screen < 100, U Benzodiazepines Scrn < 85, Urine Cocaine Screen < 50, Urine Cannabis Screen < 5.00 06/24/17 1509: Troponin I < 0.01 06/24/17 1509: Lactic Acid 1.6 06/24/17 0836: Troponin I < 0.01 06/24/17 0426: Lactic Acid Cancelled 06/24/17 0323: Lactic Acid Cancelled 06/24/17 0209: Troponin I < 0.01 06/24/17 0105: Virus Culture Pending 06/23/17 2315: Anion Gap 19 H, Estimated GFR > 60, BUN/Creatinine Ratio 16.0, Glucose 121 H, Lactic Acid 4.6 H, Calcium 9.3, Total Bilirubin 1.0, AST 18, ALT 19, Alkaline Phosphatase 65, Troponin I < 0.01, Total Protein 7.2, Albumin 4.7, Globulin 2.5, Albumin/Globulin Ratio 1.9, Lipase 21 L, TSH 0.297, Total Beta HCG NEGATIVE, PT 12.1, INR 1.15, APTT 31, D-Dimer High Sensitivty 276 H, CBC w Diff MAN DIFF ORDERED, RBC 3.80 L, MCV 98.8, MCH 33.0 H, MCHC 33.3, RDW 13.4, MPV 9.4, Gran % 95.8 H, Lymphocytes % 2.5 L, Monocytes % 1.2 L, Eosinophils % 0, Basophils % 0.5, Absolute Granulocytes 16.2 H, Segmented Neutrophils 95 H, Band Neutrophils 1, Absolute Lymphocytes 0.4 L, Lymphocytes 2 L, Monocytes 2, Absolute Monocytes 0.2, Absolute Eosinophils 0, Absolute Basophils 0.1, Platelet Estimate VERIFIED BY SMEAR, Normocytic RBCs VERIFIED, Normochromic RBCs VERIFIED , Fld Total RBCs Counted 100, Serum Alcohol < 10.0 Microbiology 06/24 1727 URINE ROUT: Legionella Antigen - COMP 06/24 1727 URINE ROUT: Streptococcus pneumoniae Antigen (M - COMP STREP PNEUMO BACTERIAL AG 06/24 447 LOWER RESP: Respiratory Culture - CAN Cancelled: SPECIMEN NOT RECEIVED IN LABORATORY 06/24 447 LOWER RESP: Gram Stain - CAN Cancelled: SPECIMEN NOT RECEIVED IN LABORATORY 06/24 409 BLOOD: Blood Culture - RES 06/24 354 BLOOD: Blood Culture - RES 06/24 319 BLOOD: Blood Culture - CAN Cancelled: DUPLICATE ORDER 1ST/VENOUS, SEE [id number] & [id number] 06/24 107 NASOPHARYN: Influenza Virus A & B Rapid Smear - COMP Imagin.CXR [06/23/17]: Unremarkable impression 2.Cardiac Echo [06/24/17] a.No significant chamber abnormalities. b. No significant valve abnormalities. c. Normal transthoracic echocardiogram. d. Physiologic valvular regurgitation. e. The aortic arch and great vessels are not well seen. 3.Chest CTA [06/24/17] a. No evidence of pulmonary embolism. b.Small scattered focus of groundglass infiltrates in the medial central anterior right upper lobe and left upper lobe. Small focus of consolidation/ atelectasis at the medial right middle lobe. Would favor an infectious or inflammatory etiology. c.VTE: negative Assessment/Plan Assessment: 42 yo F hospital day 3 for pneumonia. PMHx of hypothyroid s/p thyroidectomy. She states that she slept well last night. She is experiencing chest and back pain that she attributes to the frequent coughing, says it is 6/10. She does believe that breathing is becoming easier. She continues to have a productive cough with greenish sputum. She does experience some dizziness when initially standing but then can ambulate without difficulty. Plan: 1. Pneumonia * + strep pneumo urinary antigen * Ceftriaxone 1g daily IV (D3) for CAP * IV solumedrol 40mg q12 discontinued and switched to prednisone 40mg daily PO * Albuterol 3 mL TID INH * Mucinex 600 mg q12 PO * O2 was titrated down to room air and pulse Ox 97%. Patients respiratory status is improving. May be d/c tomorrow if she remains stable. 2. EKG Changes * EKG showed T-wave inversion and later normalization. With the history of recurrent chest pains, cardiac consultation was requested. She does not require further telemetry monitoring and can be followed up in outpatient setting if necessary. * Consider outpatient stress test for a history of what seems to be anginal pain 3. Migraine: Continue home medication [percocet 1 tab q6 PRN PO] 4. Manage Chronic conditions * Hypothyroidism: synthroid .1mg daily PO * GERD: Omeprazole 20 mg daily PO Diet: Regular diet DVT Prophylaxis: Lovenox 40 mg daily SC Code Status: Full code
[2017-06-26 14:26] VITALS: BP 110/68
[2017-06-26 22:02] VITALS: BP 132/70
[2017-06-27 06:08] VITALS: BP 112/72
--- NOTE | 2017-06-27 07:36 | PN- Housestaff ---
Tram BUSTILLOS,Franki 06/27/17 0736: Subjective Follow-up For: Acute respiratory failure, community-acquired pneumonia; Active EKG changes. Complaints: no complaints Tele-Events Since Last Visit: off tele Subjective: I followed up and examined the patient today. She is resting comfortably in a bed, not in distress, and does not have any complaints. On questioning she mentioned that she is still coughing but her sputum has cleared out too much extent. She does not appear to be wheezing, did not have any fever or chills overnight. Vital signs remained stable and she is off oxygen. Review of Systems Constitutional: Reports: see HPI. Respiratory: Reports: cough. Objective Last 24 Hrs of Vital Signs/I&O Vital Signs Date Time Temp Pulse Resp B/P B/P Pulse O2 O2 Flow FiO2 Mean Ox Delivery Rate 06/27 0736 97 Room Air 06/27 0608 97.7 48 20 112/72 94 06/27 0000 Room Air Room Air 06/26 2202 98.7 44 16 132/70 96 06/26 2129 96 Room Air Intake & Output 06/27 1600 06/27 0800 06/27 0000 Intake Total 100 100 Output Total 400 Balance 100 -300 Intake, Oral 100 100 Output, Urine 400 Physical Exam General Appearance: Alert, Oriented X3, Cooperative, No Acute Distress Other Physical Findings: Skin: No Rashes, No Breakdown, No Significant Lesion HEENT: Atraumatic, PERRLA, EOMI, Mucous Membr. moist/pink Neck: Supple, No JVD Lymphatic: Cervical nl Cardiovascular: Regular Rate, Normal S1, Normal S2, No Murmurs Lungs: No wheezes heard today, no crackles either, better than yesterday. Abdomen: Normal Bowel Sounds, Soft, No Tenderness Neurological: grossly intact Extremities: No Clubbing, No Cyanosis, No Edema, Normal Pulses, No Tenderness/ Swelling Vascular: Normal Pulses, Pulses Symmetrical Current Medications: Current Medications Sig/Tony Start time Last Medication Dose Route Stop Time Status Admin Acetaminophen 1,000 MG Q6P PRN 06/25 0845 DCD 06/25 IV 0922 Acetaminophen 650 MG Q6P PRN 06/24 0430 DCD PO Albuterol Sulfate 3 ML TID 06/25 1000 DCD 06/27 INH 0834 Albuterol Sulfate 3 ML Q4H PRN 06/24 0500 DCD INH Ceftriaxone Sodium 1,000 MG DAILY 06/24 1000 DCD 06/27 IV 0805 Enoxaparin Sodium 40 MG DAILY 06/24 1000 DCD 06/27 SC 0805 Guaifenesin 600 MG Q12 06/24 1000 DCD 06/27 PO 08 Influenza Virus 0.5 ML .STK-MED ONE 06/27 906 DC Vaccine IM 06/27 907 Levothyroxine Sodium 0.1 MG DAILY AC 06/24 699 DCD 06/27 PO 0556 Omeprazole 20 MG DAILY AC 06/24 07 DCD 06/27 PO 0556 Oxycodone/ 1 TAB Q6PRN PRN 06/25 1045 DCD 06/27 Acetaminophen PO 08 Polyethylene Glycol 17 GM DAILY NEEDED PRN 06/25 1045 DCD PO Prednisone 40 MG DAILY 06/27 1000 DCD 06/27 PO 08 Ramelteon 8 MG ONCE ONE 06/26 2044 DC 06/26 PO 06/26 2045 2220 Assessment/Plan Assessment: 42 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 She also complained of substernal chest pain, which seemed to be pleuritic, and took the first dose of oral antibiotic prescribed by urgent care clinic, but was getting worsening of symptoms, and presented to the emergency department. On presentation, her temperature was 100.3, pulse 103, respiration 30, BP 123/66 , SPO2 91% on room air, improved to 94% on 2 L oxygen via nasal cannula. See presented with moderate respiratory distress with bilateral wheezing and rhonchi on chest auscultation, and was admitted to the telemetry floor for continuous pulse ox monitoring, and management of following issues: #Acute respiratory failure, secondary to come the acquired pneumonia: She is doing much better, and we are titrating down her oxygen requirements today. Lab studies shows positive for Streptococcus antigen in urinary specimen so we started with IV ceftriaxone, and now we are switching to oral Augmentin to complete her antibody course of 10 days total. Steroid that was initially IV was changed to oral since yesterday work continue that to taper quickly on discharge. She is stable enough to be discharged to home today and needs a follow-up at her primary care physician's office. She is a young patient, who had to be admitted for acute respiratory failure secondary to community acquired pneumonia with failed outpatient oral regarding therapy. She could benefit from a chest x-ray to be repeated in 2 weeks' time and follow up with her primary care physician. #Active EKG changes, T-wave inversion, in the setting of pneumonia. Patient's EKG shows T-wave inversion, and later normalization, and with a history of recurrent chest pains, cardiac consultation was requested, and can be followed up in outpatient setting if necessary. Appreciate cardiology recommendations. #Migraine Continuing her homemeds (Percocet). #Continue rest of her home medications. #Diet: Regular diet #DVT ppx: SC Lovenox #Code status: Full code Of note, she was given a referral to Dr. Connor Cochran at [facility] clinic as he requested a change in her PCP. Problem List: 1. Pneumonia Pain Ratin Pain Location: - Pain Goal: Pain 4 or less Pain Plan: prn Tomorrow's Labs & Rationales: - Jair Jordan MD 06/27/17 0953: Attending MD Review Statement Attending Statement Attending MD Statement: examined this patient, discuss w/resident/PA/MEDICAL ASSISTING PROGRAM DIRECTOR, agreed w/resident/PA/MEDICAL ASSISTING PROGRAM DIRECTOR, reviewed EMR data (avail), discussed with nursing, discussed with case mgmt, amended to note Attending Assessment/Plan: Patient seen and examined. Ambulating freely around the unit. Not in any distress. Reports feeling much better. Not requiring oxygen supplementation. On examination lungs are clear to auscultation bilaterally. She is afebrile hemodynamically stable she is medically stable to be discharged home today. She will continue on Augmentin as an outpatient. Recommend follow-up with her primary care provider as an outpatient for repeat chest x-ray in 2 weeks to document resolution of her radiologic findings. She should also follow-up with the primary care provider for further follow-up on workup of her chronic macrocytic anemia. This has been discussed with the patient is in agreement. She wishes to switch from her current primary care providers. She will be given referral to [facility] outpatient program.
[2017-06-27] MEDS ORDERED: GUAIFENESIN ER600 MG PO ×2 (08:23→09:00)
[2017-06-27] MEDS ORDERED: OMEPRAZOLE20 M2 PO ×2 (08:23→09:00)
[2017-06-27] MEDS ORDERED: PREDNISONE10 M2 PO ×2 (08:23→09:00)
[2017-06-27] MEDS ORDERED: AUGMENTIN 875-1 EACH PO ×2 (08:27→09:00)
--- NOTE | 2017-06-27 08:30 | Patient Discharge Instructions ---
Discharge Instructions General Discharge Information You were seen/treated for: Pneumonia Special Instructions: Please follow up with her primary care physician within 1-2 weeks of discharge. Please return to emergency if symptoms worsen. Diet Continue normal diet: Yes Recommended Diet: Heart Healthy Activity Full Activity/No Limits: Yes Acute Coronary Syndrome Inclusion Criteria At DC or during hospital stay patient has or had the following: ACS DIAGNOSIS No Discharge Core Measures Meds if any: Prescribed or Continued at Discharge Meds if any: NOT Prescribed or Continued at Discharge Congestive Heart Failure Inclusion Criteria At DC or during hospital stay patient has or had the following: CHF DIAGNOSIS No Discharge Core Measures Meds if any: Prescribed or Continued at Discharge Meds if any: NOT Prescribed or Continued at Discharge Cerebrovascular accident Inclusion Criteria At DC or during hospital stay patient has or had the following: CVA/TIA Diagnosis No Discharge Core Measures Meds if any: Prescribed or Continued at Discharge Meds if any: NOT Prescribed or Continued at Discharge Venous thromboembolism Inclusion Criteria VTE Diagnosis No VTE Type NONE VTE Confirmed by (Test) NONE Discharge Core Measures - Per Current guidelines, there needs to be overlap - treatment for the first 5 days of Warfarin therapy. - If discharged on Warfarin prior to 5 days of - overlap therapy, the patient will need to be - assessed for post discharge needs including - *Post discharge parental anticoagulation - *Warfarin and/or parental anticoagulation education - *Follow up date to check INR post discharge At least 5 days overlap therapy as Inpatient No Meds if any: Prescribed or Continued at Discharge Note: Overlap Therapy is Warfarin and Anticoagulant Meds if any: NOT Prescribed or Continued at Discharge
== END 2017-06-27 10:00 | DRG 139 ==
LOC: ERH 23:01 → ERHI 06-24 03:13 → 1NO 06-24 03:13 → EDBEDREQ 06-24 07:34 → ERHI 06-24 08:29 → ENRESERV 06-24 14:53 → ENTRNSPT 06-24 16:34 → EDTRNSPT 06-24 16:44 → EDTRNSPTSTS 06-24 16:44 → 1NO 06-24 17:00 → CMPTRNSPT 06-24 17:04 → 1NO 06-26 09:55 → ENPENDDIS 06-27 08:30 → 1NO 06-27 10:00
PROVIDERS: Emergency Medicine; Student in an Organized Health Care Education/Training Program
DX: J18.9 Pneumonia, unspecified organism (principal); J96.01 Acute respiratory failure with hypoxia; E87.2 Acidosis; E03.9 Hypothyroidism, unspecified; G43.909 Migraine, unspecified, not intractable, without status migrainosus; D53.9 Nutritional anemia, unspecified; Z87.891 Personal history of nicotine dependence
CPT/HCPCS: 1NP; 36415; 71046; 80307; 82436; 87040; 87070; 87449; 87450; 87804; 87804-59; 93005; 93010; 93306; 99291; G0480; J0131; J0456; J0696; J1650; J2920; J2930; J7040; J7060; Q2036